=== PATIENT | male | born 1960 | race African-American/Black ===

== ENCOUNTER 2018-09-14 09:27 | Inpatient (IN) | payer MEDICAID ==
[~2018-09-14] VITALS: Ht 177.8 cm; Wt 107.0 kg
[~2018-09-14 09:27] MED LIST: ASPI-1158 PO; ATEN50TA PO; CITA10TA9 PO; DIPY25TA34 PO; FOLI-43 PO; ISOS10TA2 PO; LISI10TA5 PO; PHEN300C6 PO; SIMV40TA5 PO
[2018-09-14 10:33] LABS: BASOPHILS % 0.4 % (0.0-2.0); HEMATOCRIT. 48.5 % (42.0-52.0); HEMOGLOBIN. 17.5 g/dL (14.0-18.0); LYMPHOCYTES % 26.9 % (20.0-50.0); MEAN CORPUSCULAR VOLUME 86.3 fL (80.0-94.0); MEAN PLATELET VOLUME 8.4 fl (7.4-10.4); MONOCYTES % 9.5 % (2.0-8.0); NEUTROPHILS % 62.2 % (40.0-76.0); PLATELET 213 x1000/uL (130-400); RED BLOOD CELL COUNT 5.62 mill/uL (4.7-6.1); RED CELL DISTRIBUTION WIDTH 15.4 % (11.6-14.6)
[2018-09-14 10:34] LABS: INR 1.1; PROTHROMBIN TIME 10.7 sec (9.1-11.1)
[2018-09-14 10:35] LABS: CHLORIDE 103 mEq/L (98-107)
[2018-09-14] MEDS ORDERED: ASPIRIN 81MG TABLET PO ONE (11:30)
[2018-09-14] MEDS ORDERED: MAGNESIUM/ALUMINUM HYDROXIDE/SIMETHICONE 30ML UDC PO PRN (11:30)
[2018-09-14] MEDS ORDERED: ONDANSETRON HCL 4MG/2ML INJ IV PRN (11:30)
[2018-09-14] MEDS ORDERED: DIPHENHYDRAMINE 50MG/ML VIAL IV PRN (11:30)
[2018-09-14] MEDS ORDERED: ACETAMINOPHEN 325MG TABLET PO PRN (11:30)
[2018-09-14 12:13] LABS: PHOSPHORUS 3.3 mg/dL (2.5-4.9)
[2018-09-14 12:31] LABS: CLARITY URINE CLEAR (CLEAR); COLOR URINE YELLOW (YELLOW); KETONES URINE 1+ (NEGATIVE); LEUKOCYTE ESTERASE URINE NEGATIVE (NEGATIVE); NITRITE URINE NEGATIVE (NEGATIVE); OCCULT BLOOD URINE 1+ (NEGATIVE); PROTEIN URINE NEGATIVE (NEGATIVE); SPECIFIC GRAVITY URINE 1.021 (1.005-1.030); UROBILINOGEN URINE 0.2 E.U./dL (0.2-1.0)
[2018-09-14 13:14] LABS: HEPATITIS B SURFACE ANTIGEN NEGATIVE
[2018-09-14 13:43] LABS: HEPATITIS A AB IGM NEGATIVE (NEGATIVE)
[2018-09-14] MEDS ORDERED: ATENOLOL 25MG TABLET PO NR (17:30)
[2018-09-14 23:00] VITALS: BP 158/107
[2018-09-14 23:30] VITALS: BP 158/107
[2018-09-14] MEDS ORDERED: DEXTROSE 50% WATER 50ML SYRINGE IV PRN (23:45)
[2018-09-14] MEDS: CLONIDINE 0.1MG TABLET PO PRN (23:53)
[2018-09-14] MEDS: ATENOLOL 25MG TABLET PO SCH (23:54)
[2018-09-15] VITALS (7 sets, daily range): BP systolic 138–165; BP diastolic 87–112
[2018-09-15] MEDS: HYDROCODONE/ACETAMINOPHEN 5/325MG TABLET PO PRN (02:47)
[2018-09-15] MEDS: BLOOD SUGAR DIAGNOSTIC STRIP TEST SCH ×4 (05:13→22:45)
[2018-09-15 06:12] LABS: HIV SCREEN 4G Non Reactive (Non Reactive)
[2018-09-15 06:17] LABS: BASOPHILS % 0.5 % (0.0-2.0); EOSINOPHILS % 1.1 % (0.0-5.0); HEMATOCRIT. 45.6 % (42.0-52.0); HEMOGLOBIN. 15.9 g/dL (14.0-18.0); LYMPHOCYTES % 24.6 % (20.0-50.0); MEAN CORPUSCULAR HEMOGLOBIN 30.3 pg (28.0-32.0); MEAN PLATELET VOLUME 8.7 fl (7.4-10.4); MONOCYTES % 10.3 % (2.0-8.0); NEUTROPHILS % 63.5 % (40.0-76.0); PLATELET 175 x1000/uL (130-400); RED BLOOD CELL COUNT 5.24 mill/uL (4.7-6.1); RED CELL DISTRIBUTION WIDTH 15.1 % (11.6-14.6)
[2018-09-15 06:35] LABS: CHLORIDE 104 mEq/L (98-107)
[2018-09-15 06:49] LABS: HDL CHOLESTEROL 46 mg/dL (40-59)
[2018-09-15 06:51] LABS: LDL CHOLESTEROL 77 mg/dL (5-100)
[2018-09-15 07:05] LABS: FOLIC ACID (FOLATE) SERUM >20 ng/mL ng/mL (>5.38)
[2018-09-15 07:16] LABS: VITAMIN B12 SERUM 855 pg/mL (211-911)
[2018-09-15] MEDS: INSULIN LISPRO 100 UNITS/ML SUBCUT SCH ×4 (07:32→22:49)
[2018-09-15] MEDS: CLOPIDOGREL 75MG TABLET PO SCH (08:28)
[2018-09-15] MEDS: ATENOLOL 25MG TABLET PO SCH ×2 (08:28→22:44)
[2018-09-15] MEDS: ASPIRIN 81MG EC TABLET PO SCH (08:28)
[2018-09-15] MEDS: ENOXAPARIN 30MG/0.3ML SYR SUBCUT SCH ×2 (08:29→22:44)
[2018-09-15] MEDS: CLONIDINE 0.1MG TABLET PO PRN (10:43)
[2018-09-15 13:22] LABS: *AMPHETAMINES SCREEN URINE NEGATIVE (NEGATIVE); *BARBITURATES SCREEN URINE PRESUMTIVE POSITIVE (NEGATIVE); *BENZODIAZEPINES SCREEN URINE NEGATIVE (NEGATIVE); *COCAINE SCREEN URINE NEGATIVE (NEGATIVE); CANNABINOID URINE SCREEN PRESUMTIVE POSITIVE (NEGATIVE); PHENCYCLIDINE URINE SCREEN NEGATIVE (NEGATIVE)
[2018-09-15 13:23] LABS: METHADONE URINE SCREEN NEGATIVE (NEGATIVE); OPIATES URINE SCREEN NEGATIVE (NEGATIVE)
[2018-09-15] MEDS: ATORVASTATIN CALCIUM 10MG TABLET PO SCH (22:44)
[2018-09-15] MEDS: PHENYTOIN SODIUM EXTENDED 100MG CAPSULE PO SCH (22:45)
[2018-09-16] VITALS: BP 168/101
[2018-09-16] MEDS: IPRATROPIUM/ALBUTEROL 0.5-3(2.5)MG/3ML NEB INH PRN ×4 (01:30→21:13)
[2018-09-16 04:00] VITALS: BP 147/107
[2018-09-16] MEDS: BLOOD SUGAR DIAGNOSTIC STRIP TEST SCH ×4 (06:54→20:58)
[2018-09-16] MEDS: INSULIN LISPRO 100 UNITS/ML SUBCUT SCH ×4 (06:58→20:58)
[2018-09-16 08:00] VITALS: BP 167/101
[2018-09-16] MEDS: ATENOLOL 25MG TABLET PO SCH (08:22)
[2018-09-16] MEDS: CLOPIDOGREL 75MG TABLET PO SCH (08:22)
[2018-09-16] MEDS: ASPIRIN 81MG EC TABLET PO SCH (08:22)
[2018-09-16] MEDS: CLONIDINE 0.1MG TABLET PO PRN ×2 (08:22→20:59)
[2018-09-16] MEDS: ENOXAPARIN 30MG/0.3ML SYR SUBCUT SCH ×2 (08:59→20:52)
[2018-09-16] MEDS ORDERED: PHENYTOIN SODIUM 1,000 MG in SODIUM CHLORIDE 0.9% 100 ML IV SCH (11:00)
[2018-09-16 12:00] VITALS: BP 138/87
[2018-09-16] MEDS ORDERED: AMLODIPINE 2.5MG TABLET PO NR (13:00)
[2018-09-16] MEDS: LISINOPRIL 2.5MG TABLET PO SCH (13:19)
[2018-09-16 20:00] VITALS: BP 158/91
[2018-09-16] MEDS: ATORVASTATIN CALCIUM 10MG TABLET PO SCH (20:50)
[2018-09-16] MEDS: AMLODIPINE 2.5MG TABLET PO SCH (20:51)
[2018-09-16] MEDS: CARVEDILOL 6.25 MG TABLET PO SCH (20:52)
[2018-09-16] MEDS: PHENYTOIN SODIUM EXTENDED 100MG CAPSULE PO SCH (21:50)
[2018-09-17] VITALS: BP 138/103
[2018-09-17] MEDS ORDERED: HYDR-4009 PO (02:02)
[2018-09-17 04:00] VITALS: BP 164/115
[2018-09-17] MEDS: CLONIDINE 0.1MG TABLET PO PRN ×2 (05:59→12:43)
[2018-09-17] MEDS: BLOOD SUGAR DIAGNOSTIC STRIP TEST SCH ×4 (05:59→21:36)
[2018-09-17 07:41] LABS: BASOPHILS % 0.7 % (0.0-2.0); HEMATOCRIT. 52.8 % (42.0-52.0); HEMOGLOBIN. 18.1 g/dL (14.0-18.0); LYMPHOCYTES % 33.5 % (20.0-50.0); MEAN CORPUSCULAR HEMOGLOBIN 30.5 pg (28.0-32.0); MEAN CORPUSCULAR VOLUME 88.9 fL (80.0-94.0); MEAN PLATELET VOLUME 8.8 fl (7.4-10.4); MONOCYTES % 11.8 % (2.0-8.0); PLATELET 142 x1000/uL (130-400); RED BLOOD CELL COUNT 5.94 mill/uL (4.7-6.1); RED CELL DISTRIBUTION WIDTH 15.1 % (11.6-14.6)
[2018-09-17 08:00] VITALS: BP 141/104
[2018-09-17] MEDS: INSULIN LISPRO 100 UNITS/ML SUBCUT SCH ×4 (08:10→21:34)
[2018-09-17] MEDS: ASPIRIN 81MG EC TABLET PO SCH (09:15)
[2018-09-17] MEDS: CLOPIDOGREL 75MG TABLET PO SCH (09:15)
[2018-09-17] MEDS: AMLODIPINE 2.5MG TABLET PO SCH ×2 (09:17→21:35)
[2018-09-17] MEDS: CARVEDILOL 6.25 MG TABLET PO SCH (09:17)
[2018-09-17] MEDS: LISINOPRIL 2.5MG TABLET PO SCH (09:17)
[2018-09-17] MEDS: ENOXAPARIN 30MG/0.3ML SYR SUBCUT SCH ×2 (09:18→21:35)
[2018-09-17 09:41] LABS: CHLORIDE 103 mEq/L (98-107)
[2018-09-17] MEDS ORDERED: POTASSIUM CHLORIDE 20MEQ TABLET SR PO NR (11:15)
[2018-09-17 12:00] VITALS: BP 190/108
[2018-09-17] MEDS: HYDROCODONE/ACETAMINOPHEN 5/325MG TABLET PO PRN (12:44)
[2018-09-17] MEDS ORDERED: HYDRALAZINE 20MG/ML VIAL IV NR (14:45)
[2018-09-17] MEDS: IPRATROPIUM/ALBUTEROL 0.5-3(2.5)MG/3ML NEB INH PRN (15:35)
[2018-09-17 16:00] VITALS: BP 100/85
[2018-09-17] MEDS: FUROSEMIDE 40MG/4ML VIAL IVP SCH (16:15)
[2018-09-17 16:20] LABS: BG BASE EXCESS -0.1 mmol/L (-2.0-2.0); BG CARBOXYHEMOGLOBIN 0.4 % (0.5-1.5); BG FRACTION INSPIRED OXYGEN 36; BG HCO3 ACT 23.5 mmol/L (22.0-26.0); BG METHEMOGLOBIN 0.3 % (0.0-1.5); BG OXYHEMOGLOBIN 94.3 % (94.0-97.0); BG PCO2 35.9 mmHg (35.0-45.0); BG PH 7.434 (7.350-7.450); BG PO2 77.5 mmHg (75.0-100.0); BG SAMPLE SITE RIGHT RADIAL; BG TOTAL HEMOGLOBIN 17.9 g/dL (12.0-18.0); BG VENT MODE NASAL CANNULA
[2018-09-17 20:00] VITALS: BP 121/88
[2018-09-17] MEDS: PHENYTOIN SODIUM EXTENDED 100MG CAPSULE PO SCH (21:34)
[2018-09-17] MEDS: CARVEDILOL 12.5MG TABLET PO SCH (21:34)
[2018-09-17] MEDS: ATORVASTATIN CALCIUM 10MG TABLET PO SCH (21:34)
[2018-09-18] VITALS: BP 135/92
[2018-09-18 04:00] VITALS: BP 159/73
[2018-09-18 08:00] VITALS: BP 129/97
[2018-09-18] MEDS: INSULIN LISPRO 100 UNITS/ML SUBCUT SCH ×4 (08:10→20:44)
[2018-09-18] MEDS: BLOOD SUGAR DIAGNOSTIC STRIP TEST SCH ×4 (08:14→20:43)
[2018-09-18] MEDS: ASPIRIN 81MG EC TABLET PO SCH (08:45)
[2018-09-18] MEDS: LISINOPRIL 2.5MG TABLET PO SCH (08:46)
[2018-09-18] MEDS: AMLODIPINE 2.5MG TABLET PO SCH ×2 (08:46→20:43)
[2018-09-18] MEDS: FUROSEMIDE 40MG/4ML VIAL IVP SCH (08:47)
[2018-09-18] MEDS: CARVEDILOL 12.5MG TABLET PO SCH ×2 (08:48→20:43)
[2018-09-18] MEDS: CLOPIDOGREL 75MG TABLET PO SCH (08:49)
[2018-09-18] MEDS: ENOXAPARIN 30MG/0.3ML SYR SUBCUT SCH ×2 (08:53→20:43)
[2018-09-18 09:11] LABS: BASOPHILS % 1.1 % (0.0-2.0); EOSINOPHILS % 0.4 % (0.0-5.0); HEMATOCRIT. 53.5 % (42.0-52.0); HEMOGLOBIN. 18.5 g/dL (14.0-18.0); LYMPHOCYTES % 22.6 % (20.0-50.0); MEAN CORPUSCULAR HEMOGLOBIN 30.8 pg (28.0-32.0); MEAN CORPUSCULAR VOLUME 88.8 fL (80.0-94.0); MEAN PLATELET VOLUME 8.5 fl (7.4-10.4); MONOCYTES % 11.8 % (2.0-8.0); NEUTROPHILS % 64.1 % (40.0-76.0); PLATELET 222 x1000/uL (130-400); RED BLOOD CELL COUNT 6.02 mill/uL (4.7-6.1); RED CELL DISTRIBUTION WIDTH 15.1 % (11.6-14.6)
[2018-09-18 09:13] LABS: CHLORIDE 101 mEq/L (98-107)
[2018-09-18] MEDS: IPRATROPIUM/ALBUTEROL 0.5-3(2.5)MG/3ML NEB INH PRN ×2 (09:24→20:58)
[2018-09-18] MEDS ORDERED: PHENYTOIN SODIUM 700 MG in SODIUM CHLORIDE 0.9% 100 ML IV NR (11:00)
[2018-09-18 12:00] VITALS: BP 134/79
[2018-09-18 16:00] VITALS: BP 113/86
[2018-09-18 20:00] VITALS: BP 146/100
[2018-09-18] MEDS: ATORVASTATIN CALCIUM 10MG TABLET PO SCH (20:42)
[2018-09-18] MEDS: LISINOPRIL 5MG TABLET PO SCH (20:42)
[2018-09-18] MEDS: PHENYTOIN SODIUM EXTENDED 100MG CAPSULE PO SCH (20:42)
[2018-09-19] VITALS (8 sets, daily range): BP systolic 118–177; BP diastolic 52–105
[2018-09-19 07:18] LABS: CHLORIDE 102 mEq/L (98-107)
[2018-09-19 07:32] LABS: BASOPHILS % 0.3 % (0.0-2.0); EOSINOPHILS % 0.6 % (0.0-5.0); HEMATOCRIT. 46.5 % (42.0-52.0); HEMOGLOBIN. 16.6 g/dL (14.0-18.0); LYMPHOCYTES % 28.5 % (20.0-50.0); MEAN CORPUSCULAR HEMOGLOBIN 30.9 pg (28.0-32.0); MEAN CORPUSCULAR VOLUME 86.3 fL (80.0-94.0); MEAN PLATELET VOLUME 8.5 fl (7.4-10.4); MONOCYTES % 13.3 % (2.0-8.0); NEUTROPHILS % 57.3 % (40.0-76.0); PLATELET 206 x1000/uL (130-400); RED BLOOD CELL COUNT 5.39 mill/uL (4.7-6.1); RED CELL DISTRIBUTION WIDTH 14.9 % (11.6-14.6)
[2018-09-19] MEDS: BLOOD SUGAR DIAGNOSTIC STRIP TEST SCH ×3 (07:40→17:40)
[2018-09-19 08:00] LABS: TOTAL IRON BINDING CAPACITY 219 ug/dL (250-450)
[2018-09-19] MEDS: INSULIN LISPRO 100 UNITS/ML SUBCUT SCH ×3 (08:10→18:10)
[2018-09-19] MEDS: FUROSEMIDE 40MG/4ML VIAL IVP SCH (09:00)
[2018-09-19] MEDS: ASPIRIN 81MG EC TABLET PO SCH (09:00)
[2018-09-19] MEDS: CLOPIDOGREL 75MG TABLET PO SCH (09:01)
[2018-09-19] MEDS: AMLODIPINE 2.5MG TABLET PO SCH (09:01)
[2018-09-19] MEDS: CARVEDILOL 12.5MG TABLET PO SCH (09:01)
[2018-09-19] MEDS: LISINOPRIL 5MG TABLET PO SCH (09:01)
[2018-09-19] MEDS: ENOXAPARIN 30MG/0.3ML SYR SUBCUT SCH (09:02)
[2018-09-19] MEDS: IPRATROPIUM/ALBUTEROL 0.5-3(2.5)MG/3ML NEB INH PRN ×2 (09:51→16:29)
[2018-09-19] MEDS ORDERED: POTASSIUM CHLORIDE 20MEQ/PACKET PO NR (10:30)
[2018-09-19] MEDS ORDERED: AMLODIPINE 5MG TABLET PO SCH (21:00)
[2018-09-20] MEDS ORDERED: FUROSEMIDE 40MG TABLET PO SCH (09:00)
== END 2018-09-19 20:08 | disposition home or self-care (01) | DRG 194 ==
LOC: ER 09:27 → EDBEDREQ 10:45 → 7WST 11:22 → EDBEDREQ 11:26 → ENRESERV 20:33 → UNDODISIN 09-19 17:07
PROVIDERS: ADMIT Internal Medicine; ATTEND Internal Medicine
PROC: 4A00X4Z Measurement of Central Nervous Electrical Activity, External Approach (ICD-10-PCS; principal; 2018-09-17)
DX: I11.0 Hypertensive heart disease with heart failure (principal); I42.9 Cardiomyopathy, unspecified; I69.351 Hemiplegia and hemiparesis following cerebral infarction affecting right dominant side; R13.10 Dysphagia, unspecified; I50.23 Acute on chronic systolic (congestive) heart failure; E66.09 Other obesity due to excess calories; E78.00 Pure hypercholesterolemia, unspecified; I49.3 Ventricular premature depolarization; G40.909 Epilepsy, unspecified, not intractable, without status epilepticus; Z68.33 Body mass index [BMI] 33.0-33.9, adult; I69.320 Aphasia following cerebral infarction; Z68.35 Body mass index [BMI] 35.0-35.9, adult; Z79.02 Long term (current) use of antithrombotics/antiplatelets; Z79.82 Long term (current) use of aspirin; Z79.899 Other long term (current) drug therapy; Z91.81 History of falling; Z99.3 Dependence on wheelchair; Z87.81 Personal history of (healed) traumatic fracture; Z71.3 Dietary counseling and surveillance
CPT/HCPCS: 36415; 36600; 70544; 70553; 71045; 72141; 80048; 80061; 80185; 80305; 80320; 82375; 82607; 82728; 82746; 82805; 82962; 83036; 83540; 83550; 83735; 83880; 84100; 84443; 84484; 85379; 86705; 86709; 86803; 87340; 87389; 92610; 93005; 93306; 93880; 93970; 94640; 96374; 96375; 97162; 97166; 99285; C1893; J0360; J1165; J1650; J1815; J1940; J7050; J7620; G0480

== ENCOUNTER 2018-10-04 23:24 | Inpatient (IN) | payer MEDICAID ==
[~2018-10-04] VITALS: Ht 182.9 cm; Wt 102.5 kg
[2018-10-04] MEDS ORDERED: SODIUM CHLORIDE 0.9% 1,000 ML IV ONE (23:58)
[2018-10-04] MEDS ORDERED: ONDANSETRON HCL 4MG/2ML INJ IV STA (23:58)
[2018-10-04] MEDS ORDERED: FAMOTIDINE 20MG/2ML VIAL IV STA (23:58)
[2018-10-04] MEDS ORDERED: MORPHINE SULFATE 4 MG/ML CPJ (NOT FOR IM USE) IV STA (23:58)
[2018-10-05 00:38] LABS: BASOPHILS % 1.2 % (0.0-2.0); EOSINOPHILS % 1.2 % (0.0-5.0); HEMATOCRIT. 48.5 % (42.0-52.0); HEMOGLOBIN. 17.2 g/dL (14.0-18.0); LYMPHOCYTES % 32.4 % (20.0-50.0); MEAN CORPUSCULAR HEMOGLOBIN 30.7 pg (28.0-32.0); MEAN CORPUSCULAR VOLUME 86.7 fL (80.0-94.0); MEAN PLATELET VOLUME 8.5 fl (7.4-10.4); MONOCYTES % 9.4 % (2.0-8.0); NEUTROPHILS % 55.8 % (40.0-76.0); PLATELET 186 x1000/uL (130-400); RED CELL DISTRIBUTION WIDTH 14.9 % (11.6-14.6)
[2018-10-05 00:43] LABS: CHLORIDE 105 mEq/L (98-107)
[2018-10-05 00:46] LABS: PROTHROMBIN TIME 10.5 sec (9.6-11.0)
[2018-10-05 00:48] LABS: ETHANOL BLOOD < 10 mg/dL
[2018-10-05 01:11] LABS: CLARITY URINE TURBID (CLEAR); COLOR URINE DARK YELLOW (YELLOW); KETONES URINE 1+ (NEGATIVE); LEUKOCYTE ESTERASE URINE NEGATIVE (NEGATIVE); NITRITE URINE NEGATIVE (NEGATIVE); OCCULT BLOOD URINE 1+ (NEGATIVE); PROTEIN URINE 2+ (NEGATIVE); SPECIFIC GRAVITY URINE 1.029 (1.005-1.030)
[2018-10-05] MEDS ORDERED: IOHEXOL-300 100 ML BOTTLE ONE (02:15)
[2018-10-05] MEDS ORDERED: ENOXAPARIN 120MG/0.8ML SYR SUBCUT ONE (02:45)
[2018-10-05 04:00] VITALS: BP 123/96
[2018-10-05] MEDS ORDERED: ONDANSETRON HCL 4MG/2ML INJ IV PRN (07:00)
[2018-10-05 08:07] VITALS: BP 150/94
[2018-10-05] MEDS: DEXT 5%/0.45% NACL 1000ML 1,000 ML IV SCH ×2 (08:33→17:47)
[2018-10-05] MEDS: PANTOPRAZOLE SODIUM 40 MG/VIAL IV SCH (08:38)
[2018-10-05] MEDS: ENOXAPARIN 100MG/ML SYR SUBCUT SCH ×2 (10:11→21:25)
[2018-10-05 12:06] VITALS: BP 152/97
[2018-10-05] MEDS ORDERED: IOHEXOL-350 100 ML BOTTLE ONE (14:28)
[2018-10-05 16:14] VITALS: BP 120/62
[2018-10-05 20:34] VITALS: BP 112/87
[2018-10-05] MEDS: MORPHINE SULFATE 4 MG/ML CPJ (NOT FOR IM USE) IV PRN (22:23)
[2018-10-06] VITALS (48 sets, daily range): BP systolic 74–204; BP diastolic 50–131
[2018-10-06] MEDS: MORPHINE SULFATE 4 MG/ML CPJ (NOT FOR IM USE) IV PRN (05:38)
[2018-10-06] MEDS: PANTOPRAZOLE SODIUM 40 MG/VIAL IV SCH (08:21)
[2018-10-06] MEDS: ATENOLOL 50 MG TABLET PO SCH (08:53)
[2018-10-06] MEDS: LISINOPRIL 10MG TABLET PO SCH (08:53)
[2018-10-06] MEDS: FOLIC ACID 1MG TABLET PO SCH (08:53)
[2018-10-06] MEDS: ISOSORBIDE DINITRATE 10MG TABLET PO SCH ×3 (08:53→16:25)
[2018-10-06] MEDS ORDERED: DIPYRIDAMOLE 25 MG PO SCH (09:00)
[2018-10-06] MEDS ORDERED: MEDICATION NOT ON FORMULARY EA (Atenolol 50 MG) PO SCH (09:00)
[2018-10-06] MEDS: ENOXAPARIN 100MG/ML SYR SUBCUT SCH ×2 (09:00→21:08)
[2018-10-06] MEDS ORDERED: MEDICATION NOT ON FORMULARY EA (Folic Acid 1 MG) PO SCH (09:00)
[2018-10-06] MEDS ORDERED: MEDICATION NOT ON FORMULARY EA (Isosorbide Dinitrate 10 MG) PO SCH (09:00)
[2018-10-06] MEDS ORDERED: MEDICATION NOT ON FORMULARY EA (Lisinopril 10 MG) PO SCH (09:00)
[2018-10-06] MEDS: IPRATROPIUM/ALBUTEROL 0.5-3(2.5)MG/3ML NEB HHN PRN (11:09)
[2018-10-06] MEDS ORDERED: VECURONIUM BROMIDE 10 MG/VIAL IV ONE (12:50)
[2018-10-06] MEDS ORDERED: ETOMIDATE 2MG/ML 10ML VIAL IV ONE (12:50)
[2018-10-06] MEDS: DEXT 5%/0.45% NACL 1000ML 1,000 ML IV SCH ×3 (13:00→22:53)
[2018-10-06] MEDS: PROPOFOL 10MG/ML 100ML 100 ML IV PRN ×3 (13:45→21:56)
[2018-10-06 14:01] LABS: BG BASE EXCESS 1.1 mmol/L (-2.0-2.0); BG CARBOXYHEMOGLOBIN 0.8 % (0.5-1.5); BG DEOXYHEMOGLOBIN 0.6 % (0.0-5.0); BG HCO3 ACT 23.6 mmol/L (22.0-26.0); BG METHEMOGLOBIN 0.4 % (0.0-1.5); BG OXYGEN SATURATION 99.4 % (92.0-98.5); BG OXYHEMOGLOBIN 98.2 % (94.0-97.0); BG PH 7.485 (7.350-7.450); BG PO2 199.7 mmHg (75.0-100.0); BG SAMPLE SITE RIGHT RADIAL; BG TIDAL VOLUME(mL) 550 mL; BG VENT MODE VENT - A/C; BG VENT RATE 16 set
[2018-10-06] MEDS ORDERED: IOHEXOL-350 100 ML BOTTLE ONE (15:56)
[2018-10-06] MEDS: IPRATROPIUM/ALBUTEROL 0.5-3(2.5)MG/3ML NEB HHN SCH ×2 (16:10→20:14)
[2018-10-06] MEDS: PHENYLEPHRINE 40 MG in DEXT 5% WATER 246 ML IV PRN ×2 (18:37→19:37)
[2018-10-06] MEDS ORDERED: MEDICATION NOT ON FORMULARY EA (Citalopram Hydrobromide (Citalopram Hbr) 10 MG) PO SCH (21:00)
[2018-10-06] MEDS: PHENYTOIN SODIUM EXTENDED 100MG CAPSULE PO SCH (21:00)
[2018-10-06] MEDS ORDERED: PHENYTOIN SODIUM 300 MG PO SCH (21:00)
[2018-10-06] MEDS: ATORVASTATIN CALCIUM 20MG TABLET PO SCH (21:00)
[2018-10-06] MEDS ORDERED: MEDICATION NOT ON FORMULARY EA (Simvastatin 40 MG) PO SCH (21:00)
[2018-10-06] MEDS: CITALOPRAM HYDROBROMIDE 10MG TABLET PO SCH (21:00)
[2018-10-06] MEDS: ACETAMINOPHEN 650MG/20.3ML UDC PO PRN (23:59)
[2018-10-07] VITALS (100 sets, daily range): BP systolic 74–150; BP diastolic 45–105
[2018-10-07] MEDS: IPRATROPIUM/ALBUTEROL 0.5-3(2.5)MG/3ML NEB HHN SCH ×6 (00:07→20:03)
[2018-10-07] MEDS: PROPOFOL 10MG/ML 100ML 100 ML IV PRN ×6 (01:37→22:55)
[2018-10-07] MEDS: MORPHINE SULFATE 4 MG/ML CPJ (NOT FOR IM USE) IV PRN (01:59)
[2018-10-07] MEDS: PHENYLEPHRINE 40 MG in DEXT 5% WATER 246 ML IV PRN ×5 (05:24→22:51)
[2018-10-07 05:55] LABS: BASOPHILS % 0.2 % (0.0-2.0); HEMATOCRIT. 48.4 % (42.0-52.0); HEMOGLOBIN. 17.1 g/dL (14.0-18.0); LYMPHOCYTES % 8.5 % (20.0-50.0); MEAN CORPUSCULAR HEMOGLOBIN 30.6 pg (28.0-32.0); MEAN CORPUSCULAR VOLUME 86.5 fL (80.0-94.0); MEAN PLATELET VOLUME 8.8 fl (7.4-10.4); MONOCYTES % 6.6 % (2.0-8.0); NEUTROPHILS % 84.7 % (40.0-76.0); PLATELET 169 x1000/uL (130-400); RED BLOOD CELL COUNT 5.59 mill/uL (4.7-6.1); RED CELL DISTRIBUTION WIDTH 15.2 % (11.6-14.6)
[2018-10-07 06:37] LABS: CHLORIDE 105 mEq/L (98-107)
[2018-10-07] MEDS ORDERED: NOREPINEPHRINE 16 MG in DEXT 5% WATER 234 ML IV PRN (08:30)
[2018-10-07 08:43] LABS: BG CARBOXYHEMOGLOBIN 0.1 % (0.5-1.5); BG DEOXYHEMOGLOBIN 4.1 % (0.0-5.0); BG FRACTION INSPIRED OXYGEN 40; BG HCO3 ACT 21.5 mmol/L (22.0-26.0); BG METHEMOGLOBIN 0.4 % (0.0-1.5); BG OXYGEN SATURATION 95.9 % (92.0-98.5); BG OXYHEMOGLOBIN 95.4 % (94.0-97.0); BG PCO2 30.8 mmHg (35.0-45.0); BG PH 7.462 (7.350-7.450); BG SAMPLE SITE RIGHT RADIAL; BG TIDAL VOLUME(mL) 550 mL; BG TOTAL HEMOGLOBIN 16.5 g/dL (12.0-18.0); BG VENT MODE VENT - A/C; BG VENT RATE 14 set
[2018-10-07] MEDS: PANTOPRAZOLE SODIUM 40 MG/VIAL IV SCH (08:52)
[2018-10-07] MEDS: ISOSORBIDE DINITRATE 10MG TABLET PO SCH (09:00)
[2018-10-07] MEDS: LISINOPRIL 10MG TABLET PO SCH (09:00)
[2018-10-07] MEDS ORDERED: KCL 20MEQ/100ML PREMIX 100 ML IV SCH (09:00)
[2018-10-07] MEDS: ATENOLOL 50 MG TABLET PO SCH (09:00)
[2018-10-07] MEDS: ENOXAPARIN 100MG/ML SYR SUBCUT SCH ×2 (09:08→21:05)
[2018-10-07] MEDS: DEXT 5%/0.45% NACL 1000ML 1,000 ML IV SCH ×2 (09:08→20:48)
[2018-10-07 09:10] LABS: ANTI-NUCLEAR ANTIBODIES DIRECT Negative (Negative)
[2018-10-07] MEDS ORDERED: CEFEPIME 1,000 MG in DEXTROSE 5% WATER 50 ML IV SCH (09:30)
[2018-10-07] MEDS ORDERED: ASPIRIN 81MG TABLET PO SCH (11:00)
[2018-10-07] MEDS: FOLIC ACID 1MG TABLET PO SCH (11:25)
[2018-10-07] MEDS ORDERED: POTASSIUM CHLORIDE 20MEQ/PACKET PO NR (11:30)
[2018-10-07] MEDS: METRONIDAZOLE 500 MG PREMIX 100 ML IV SCH ×2 (11:42→17:51)
[2018-10-07] MEDS ORDERED: PIPERACILLIN/TAZ 3.375G PREMIX 50 ML IV SCH (12:00)
[2018-10-07] MEDS ORDERED: VANCOMYCIN 2,000 MG in DEXT 5% WATER 500 ML IV NR (14:00)
[2018-10-07] MEDS: PIPERACILLIN/TAZ 3.375G PREMIX 50 ML IV SCH ×2 (14:49→21:04)
[2018-10-07 15:06] LABS: ANTI-THROMBIN ACTIVITY 106 % (75-135); DRVVT LA 39.8 sec (0.0-47.0); LUPUS ANTICOAG INTERPRETATION Comment: (.); PROTEIN C FUNCTIONAL 107 % (73-180)
[2018-10-07] MEDS: ACETAMINOPHEN 650MG/20.3ML UDC PO PRN (17:08)
[2018-10-07] MEDS: CITALOPRAM HYDROBROMIDE 10MG TABLET PO SCH (21:05)
[2018-10-07] MEDS: ATORVASTATIN CALCIUM 20MG TABLET PO SCH (21:05)
[2018-10-07] MEDS: PHENYTOIN SODIUM EXTENDED 100MG CAPSULE PO SCH (21:05)
[2018-10-08] VITALS (95 sets, daily range): BP systolic 84–161; BP diastolic 39–111
[2018-10-08] MEDS: IPRATROPIUM/ALBUTEROL 0.5-3(2.5)MG/3ML NEB HHN SCH ×3 (00:01→09:29)
[2018-10-08] MEDS: METRONIDAZOLE 500 MG PREMIX 100 ML IV SCH ×3 (01:04→18:02)
[2018-10-08] MEDS: PIPERACILLIN/TAZ 3.375G PREMIX 50 ML IV SCH ×4 (02:11→21:29)
[2018-10-08] MEDS: VANCOMYCIN 1500MG in DEXTROSE 5% WATER 250ML IV SCH ×2 (02:42→13:50)
[2018-10-08] MEDS: PHENYLEPHRINE 40 MG in DEXT 5% WATER 246 ML IV PRN ×2 (04:24→14:03)
[2018-10-08 05:44] LABS: CHLORIDE 106 mEq/L (98-107)
[2018-10-08 05:57] LABS: BASOPHILS % 0.2 % (0.0-2.0); HEMATOCRIT. 45.1 % (42.0-52.0); LYMPHOCYTES % 10.4 % (20.0-50.0); MEAN CORPUSCULAR VOLUME 87.2 fL (80.0-94.0); MONOCYTES % 7.8 % (2.0-8.0); NEUTROPHILS % 81.6 % (40.0-76.0); PLATELET 188 x1000/uL (130-400); RED BLOOD CELL COUNT 5.17 mill/uL (4.7-6.1); RED CELL DISTRIBUTION WIDTH 14.9 % (11.6-14.6)
[2018-10-08] MEDS: PROPOFOL 10MG/ML 100ML 100 ML IV PRN ×3 (06:08→22:59)
[2018-10-08 08:17] LABS: BG FRACTION INSPIRED OXYGEN 40; BG SAMPLE SITE RIGHT BRACHIAL; BG TIDAL VOLUME(mL) 550 mL; BG VENT MODE VENT - A/C; BG VENT RATE 12 set
[2018-10-08 08:18] LABS: BG BASE EXCESS -4.5 mmol/L (-2.0-2.0); BG CARBOXYHEMOGLOBIN 0.3 % (0.5-1.5); BG DEOXYHEMOGLOBIN 7.6 % (0.0-5.0); BG HCO3 ACT 18.4 mmol/L (22.0-26.0); BG METHEMOGLOBIN 0.4 % (0.0-1.5); BG OXYGEN SATURATION 92.3 % (92.0-98.5); BG OXYHEMOGLOBIN 91.7 % (94.0-97.0); BG PCO2 29.2 mmHg (35.0-45.0); BG PH 7.417 (7.350-7.450); BG PO2 65.1 mmHg (75.0-100.0); BG TOTAL HEMOGLOBIN 16.6 g/dL (12.0-18.0)
[2018-10-08] MEDS: PANTOPRAZOLE SODIUM 40 MG/VIAL IV SCH (08:39)
[2018-10-08] MEDS: DEXT 5%/0.45% NACL 1000ML 1,000 ML IV SCH ×3 (08:40→21:42)
[2018-10-08] MEDS: FOLIC ACID 1MG TABLET PO SCH (08:40)
[2018-10-08] MEDS: ENOXAPARIN 100MG/ML SYR SUBCUT SCH ×2 (09:29→21:30)
[2018-10-08] MEDS: IPRATROPIUM BROMIDE (0.02%) 0.5MG/2.5ML NEB HHN SCH ×3 (11:47→21:06)
[2018-10-08] MEDS: PHENYTOIN SODIUM EXTENDED 100MG CAPSULE PO SCH (21:30)
[2018-10-08] MEDS: ATORVASTATIN CALCIUM 20MG TABLET PO SCH (21:30)
[2018-10-08] MEDS: CITALOPRAM HYDROBROMIDE 10MG TABLET PO SCH (21:30)
[2018-10-09] VITALS (109 sets, daily range): BP systolic 73–211; BP diastolic 35–128
[2018-10-09] MEDS: VANCOMYCIN 1500MG in DEXTROSE 5% WATER 250ML IV SCH ×2 (01:16→13:06)
[2018-10-09] MEDS: PIPERACILLIN/TAZ 3.375G PREMIX 50 ML IV SCH ×4 (03:29→21:17)
[2018-10-09] MEDS: PROPOFOL 10MG/ML 100ML 100 ML IV PRN ×2 (04:52→15:09)
[2018-10-09] MEDS: IPRATROPIUM BROMIDE (0.02%) 0.5MG/2.5ML NEB HHN SCH ×5 (04:53→20:44)
[2018-10-09 05:30] LABS: BASOPHILS % 0.2 % (0.0-2.0); EOSINOPHILS % 0.3 % (0.0-5.0); HEMATOCRIT. 41.2 % (42.0-52.0); HEMOGLOBIN. 14.5 g/dL (14.0-18.0); LYMPHOCYTES % 12.4 % (20.0-50.0); MEAN CORPUSCULAR HEMOGLOBIN 30.9 pg (28.0-32.0); NEUTROPHILS % 80.1 % (40.0-76.0); PLATELET 143 x1000/uL (130-400); RED BLOOD CELL COUNT 4.68 mill/uL (4.7-6.1); RED CELL DISTRIBUTION WIDTH 15.3 % (11.6-14.6)
[2018-10-09 06:25] LABS: CHLORIDE 110 mEq/L (98-107)
[2018-10-09 07:52] LABS: BG CARBOXYHEMOGLOBIN 0.4 % (0.5-1.5); BG DEOXYHEMOGLOBIN 3.4 % (0.0-5.0); BG FRACTION INSPIRED OXYGEN 40; BG HCO3 ACT 20.6 mmol/L (22.0-26.0); BG METHEMOGLOBIN 0.4 % (0.0-1.5); BG OXYGEN SATURATION 96.6 % (92.0-98.5); BG OXYHEMOGLOBIN 95.8 % (94.0-97.0); BG PCO2 32.8 mmHg (35.0-45.0); BG PH 7.415 (7.350-7.450); BG PO2 87.4 mmHg (75.0-100.0); BG SAMPLE SITE RIGHT RADIAL; BG TIDAL VOLUME(mL) 550 mL; BG TOTAL HEMOGLOBIN 14.7 g/dL (12.0-18.0); BG VENT MODE VENT - A/C; BG VENT RATE 12 set
[2018-10-09] MEDS: PANTOPRAZOLE SODIUM 40 MG/VIAL IV SCH (08:41)
[2018-10-09] MEDS: FOLIC ACID 1MG TABLET PO SCH (08:41)
[2018-10-09] MEDS: DEXT 5%/0.45% NACL 1000ML 1,000 ML IV SCH ×2 (08:49→18:04)
[2018-10-09] MEDS: ENOXAPARIN 100MG/ML SYR SUBCUT SCH ×2 (10:39→21:18)
[2018-10-09 11:39] LABS: BG BASE EXCESS -0.8 mmol/L (-2.0-2.0); BG CARBOXYHEMOGLOBIN 0.3 % (0.5-1.5); BG DEOXYHEMOGLOBIN 2.8 % (0.0-5.0); BG FRACTION INSPIRED OXYGEN 40; BG HCO3 ACT 23.5 mmol/L (22.0-26.0); BG METHEMOGLOBIN 0.3 % (0.0-1.5); BG OXYGEN SATURATION 97.2 % (92.0-98.5); BG OXYHEMOGLOBIN 96.6 % (94.0-97.0); BG PCO2 37.8 mmHg (35.0-45.0); BG PH 7.411 (7.350-7.450); BG PO2 92.9 mmHg (75.0-100.0); BG PRESSURE SUPPORT 8; BG SAMPLE SITE RIGHT BRACHIAL; BG TOTAL HEMOGLOBIN 14.3 g/dL (12.0-18.0); BG VENT MODE VENT - CPAP
[2018-10-09 11:50] LABS: CHLORIDE 110 mEq/L (98-107)
[2018-10-09] MEDS ORDERED: POTASSIUM CHLORIDE 20MEQ/PACKET PO NR (12:15)
[2018-10-09] MEDS ORDERED: KCL 20MEQ/100ML PREMIX 100 ML IV NR (13:00)
[2018-10-09 13:10] LABS: ANTI-MYELOPEROXIDASE AB < 9.0 U/mL (0.0-9.0); ANTI-PROTEINASE 3 ABS < 3.5 U/mL (0.0-3.5)
[2018-10-09] MEDS: ATENOLOL 50 MG TABLET PO SCH (13:53)
[2018-10-09] MEDS: LISINOPRIL 10MG TABLET PO SCH (13:54)
[2018-10-09] MEDS: ACETYLCYSTEINE 100MG/ML 10% VIAL 4ML INH SCH (14:00)
[2018-10-09] MEDS: METHYLPREDNISOLONE SOD SUCC 125 MG/2 ML VIAL IV SCH ×2 (14:58→21:16)
[2018-10-09] MEDS: LOSARTAN POTASSIUM 25 MG TABLET PO SCH (14:58)
[2018-10-09 15:06] LABS: ATYPICAL P-ANCA <1:20 titer (Neg:<1:20); CYTOPLASMIC C-ANCA <1:20 titer (Neg:<1:20); PERINUCLEAR P-ANCA <1:20 titer (Neg:<1:20)
[2018-10-09 15:37] LABS: BG BASE EXCESS -2.3 mmol/L (-2.0-2.0); BG CARBOXYHEMOGLOBIN 0.3 % (0.5-1.5); BG DEOXYHEMOGLOBIN 9.9 % (0.0-5.0); BG FRACTION INSPIRED OXYGEN 40; BG HCO3 ACT 22.1 mmol/L (22.0-26.0); BG METHEMOGLOBIN 0.5 % (0.0-1.5); BG OXYHEMOGLOBIN 89.3 % (94.0-97.0); BG PCO2 37.1 mmHg (35.0-45.0); BG PH 7.392 (7.350-7.450); BG PO2 59.7 mmHg (75.0-100.0); BG SAMPLE SITE RIGHT RADIAL; BG TIDAL VOLUME(mL) 550 mL; BG TOTAL HEMOGLOBIN 15.6 g/dL (12.0-18.0); BG VENT MODE VENT - A/C; BG VENT RATE 12 set
[2018-10-09] MEDS ORDERED: VECURONIUM BROMIDE 10 MG/VIAL IV ONE (16:00)
[2018-10-09] MEDS ORDERED: ETOMIDATE 2MG/ML 10ML VIAL IV ONE (16:00)
[2018-10-09] MEDS: PHENYTOIN SODIUM EXTENDED 100MG CAPSULE PO SCH (21:17)
[2018-10-09] MEDS: CITALOPRAM HYDROBROMIDE 10MG TABLET PO SCH (21:17)
[2018-10-09] MEDS: ATORVASTATIN CALCIUM 20MG TABLET PO SCH (21:17)
[2018-10-10] VITALS (92 sets, daily range): BP systolic 84–145; BP diastolic 42–93
[2018-10-10] MEDS: IPRATROPIUM BROMIDE (0.02%) 0.5MG/2.5ML NEB HHN SCH ×6 (00:35→21:09)
[2018-10-10] MEDS: ACETYLCYSTEINE 100MG/ML 10% VIAL 4ML INH SCH ×2 (00:36→08:00)
[2018-10-10] MEDS: VANCOMYCIN 1500MG in DEXTROSE 5% WATER 250ML IV SCH ×2 (02:05→13:10)
[2018-10-10] MEDS: METHYLPREDNISOLONE SOD SUCC 125 MG/2 ML VIAL IV SCH ×3 (02:11→17:15)
[2018-10-10] MEDS: PROPOFOL 10MG/ML 100ML 100 ML IV PRN ×2 (02:11→10:07)
[2018-10-10] MEDS: PIPERACILLIN/TAZ 3.375G PREMIX 50 ML IV SCH ×4 (02:11→21:38)
[2018-10-10] MEDS: MORPHINE SULFATE 4 MG/ML CPJ (NOT FOR IM USE) IV PRN (03:10)
[2018-10-10] MEDS: DEXT 5%/0.45% NACL 1000ML 1,000 ML IV SCH ×2 (03:18→17:15)
[2018-10-10] MEDS: IPRATROPIUM/ALBUTEROL 0.5-3(2.5)MG/3ML NEB HHN PRN (05:03)
[2018-10-10 05:36] LABS: HEMATOCRIT. 39.6 % (42.0-52.0); HEMOGLOBIN. 13.8 g/dL (14.0-18.0); MEAN CORPUSCULAR HEMOGLOBIN 30.7 pg (28.0-32.0); MEAN CORPUSCULAR VOLUME 88.1 fL (80.0-94.0); MEAN PLATELET VOLUME 9.1 fl (7.4-10.4); PLATELET 154 x1000/uL (130-400); RED BLOOD CELL COUNT 4.49 mill/uL (4.7-6.1); RED CELL DISTRIBUTION WIDTH 15.5 % (11.6-14.6)
[2018-10-10] MEDS: PANTOPRAZOLE SODIUM 40 MG/VIAL IV SCH (08:36)
[2018-10-10] MEDS: ATENOLOL 50 MG TABLET PO SCH (08:37)
[2018-10-10] MEDS: FOLIC ACID 1MG TABLET PO SCH (08:37)
[2018-10-10] MEDS: LISINOPRIL 10MG TABLET PO SCH (08:38)
[2018-10-10] MEDS: LOSARTAN POTASSIUM 25 MG TABLET PO SCH (08:38)
[2018-10-10] MEDS: ENOXAPARIN 100MG/ML SYR SUBCUT SCH ×2 (10:09→21:38)
[2018-10-10 10:14] LABS: NUCLEATED RED BLOOD CELLS 1 /100 WBC; PLATELET ESTIMATE NORMAL
[2018-10-10] MEDS: PHENYLEPHRINE 40 MG in DEXT 5% WATER 246 ML IV PRN (12:18)
[2018-10-10] MEDS: MIDAZOLAM HCL 100 MG in DEXT 5% WATER 80 ML IV PRN (12:19)
[2018-10-10] MEDS: FENTANYL CITRATE/PF 500 MCG in SODIUM CHLORIDE 0.9% 40 ML IV PRN (12:20)
[2018-10-10 13:07] LABS: ANTI-CARDIOLIPIN AB IGG < 9 GPL U/mL (0-14); ANTI-CARDIOLIPIN AB IGM < 9 MPL U/mL (0-12)
[2018-10-10] MEDS: ATORVASTATIN CALCIUM 20MG TABLET PO SCH (21:38)
[2018-10-10] MEDS: PHENYTOIN SODIUM EXTENDED 100MG CAPSULE PO SCH (21:38)
[2018-10-11] VITALS (98 sets, daily range): BP systolic 94–152; BP diastolic 65–113
[2018-10-11] MEDS ORDERED: ACETYLCYSTEINE 200MG/ML 20% VIAL 4ML INH SCH
[2018-10-11] MEDS: ACETYLCYSTEINE 100MG/ML 10% VIAL 4ML INH SCH (00:37)
[2018-10-11] MEDS: IPRATROPIUM BROMIDE (0.02%) 0.5MG/2.5ML NEB HHN SCH ×6 (00:37→21:06)
[2018-10-11] MEDS: VANCOMYCIN 1500MG in DEXTROSE 5% WATER 250ML IV SCH (02:25)
[2018-10-11] MEDS: METHYLPREDNISOLONE SOD SUCC 125 MG/2 ML VIAL IV SCH ×3 (02:25→18:36)
[2018-10-11] MEDS: DEXT 5%/0.45% NACL 1000ML 1,000 ML IV SCH (03:34)
[2018-10-11] MEDS: PIPERACILLIN/TAZ 3.375G PREMIX 50 ML IV SCH ×4 (03:35→21:55)
[2018-10-11 05:38] LABS: HEMATOCRIT. 38.3 % (42.0-52.0); HEMOGLOBIN. 13.1 g/dL (14.0-18.0); MEAN CORPUSCULAR HEMOGLOBIN 29.9 pg (28.0-32.0); MEAN CORPUSCULAR VOLUME 87.3 fL (80.0-94.0); MEAN PLATELET VOLUME 9.1 fl (7.4-10.4); PLATELET 181 x1000/uL (130-400); RED BLOOD CELL COUNT 4.39 mill/uL (4.7-6.1); RED CELL DISTRIBUTION WIDTH 15.6 % (11.6-14.6)
[2018-10-11 07:53] LABS: BG BASE EXCESS -0.4 mmol/L (-2.0-2.0); BG CARBOXYHEMOGLOBIN 0.3 % (0.5-1.5); BG DEOXYHEMOGLOBIN 5.1 % (0.0-5.0); BG HCO3 ACT 24.6 mmol/L (22.0-26.0); BG METHEMOGLOBIN 0.3 % (0.0-1.5); BG OXYGEN SATURATION 94.9 % (92.0-98.5); BG OXYHEMOGLOBIN 94.3 % (94.0-97.0); BG PCO2 41.7 mmHg (35.0-45.0); BG PH 7.389 (7.350-7.450); BG PO2 75.9 mmHg (75.0-100.0); BG SAMPLE SITE RIGHT RADIAL; BG TIDAL VOLUME(mL) 550 mL; BG TOTAL HEMOGLOBIN 13.6 g/dL (12.0-18.0); BG VENT MODE VENT - A/C; BG VENT RATE 12 set
[2018-10-11 08:38] LABS: PLATELET ESTIMATE NORMAL
[2018-10-11] MEDS: PANTOPRAZOLE SODIUM 40 MG/VIAL IV SCH (09:44)
[2018-10-11] MEDS: FOLIC ACID 1MG TABLET PO SCH (09:44)
[2018-10-11] MEDS: ENOXAPARIN 100MG/ML SYR SUBCUT SCH ×2 (10:22→21:57)
[2018-10-11] MEDS ORDERED: LIDOCAINE HCL/PF 1% 2ML VIAL ONE (11:03)
[2018-10-11] MEDS: FENTANYL CITRATE/PF 500 MCG in SODIUM CHLORIDE 0.9% 40 ML IV PRN (11:10)
[2018-10-11] MEDS: MIDAZOLAM HCL 100 MG in DEXT 5% WATER 80 ML IV PRN ×2 (11:10→23:22)
[2018-10-11] MEDS ORDERED: SODIUM CHLORIDE 3% FOR INH 15ML VIAL NEB INH SCH (12:00)
[2018-10-11 15:13] LABS: CREATINE KINASE 87 IU/L (39-308)
[2018-10-11] MEDS: SODIUM CHLORIDE 3% FOR INH 4ML UD NEB INH SCH (21:06)
[2018-10-11] MEDS: PHENYTOIN SODIUM EXTENDED 100MG CAPSULE PO SCH (21:55)
[2018-10-11] MEDS: ATORVASTATIN CALCIUM 20MG TABLET PO SCH (21:55)
[2018-10-12] VITALS (93 sets, daily range): BP systolic 62–140; BP diastolic 33–119
[2018-10-12] MEDS: PIPERACILLIN/TAZ 3.375G PREMIX 50 ML IV SCH ×4 (02:52→21:31)
[2018-10-12] MEDS: METHYLPREDNISOLONE SOD SUCC 125 MG/2 ML VIAL IV SCH ×2 (02:52→09:01)
[2018-10-12] MEDS: SODIUM CHLORIDE 3% FOR INH 4ML UD NEB INH SCH ×3 (04:26→12:38)
[2018-10-12] MEDS: IPRATROPIUM/ALBUTEROL 0.5-3(2.5)MG/3ML NEB HHN PRN ×3 (04:27→20:24)
[2018-10-12] MEDS: IPRATROPIUM BROMIDE (0.02%) 0.5MG/2.5ML NEB HHN SCH ×5 (04:28→20:24)
[2018-10-12 05:44] LABS: BASOPHILS % 0.1 % (0.0-2.0); HEMATOCRIT. 37.6 % (42.0-52.0); HEMOGLOBIN. 13.1 g/dL (14.0-18.0); LYMPHOCYTES % 7.6 % (20.0-50.0); MEAN CORPUSCULAR HEMOGLOBIN 30.8 pg (28.0-32.0); MEAN PLATELET VOLUME 9.1 fl (7.4-10.4); MONOCYTES % 11.4 % (2.0-8.0); NEUTROPHILS % 80.9 % (40.0-76.0); PLATELET 198 x1000/uL (130-400); RED BLOOD CELL COUNT 4.27 mill/uL (4.7-6.1); RED CELL DISTRIBUTION WIDTH 15.6 % (11.6-14.6)
[2018-10-12 06:11] LABS: PHOSPHORUS 3.8 mg/dL (2.5-4.9)
[2018-10-12] MEDS: FENTANYL CITRATE/PF 500 MCG in SODIUM CHLORIDE 0.9% 40 ML IV PRN ×2 (06:35→10:57)
[2018-10-12] MEDS: ACETYLCYSTEINE 100MG/ML 10% VIAL 4ML INH SCH ×2 (08:06→16:44)
[2018-10-12 08:21] LABS: BG BASE EXCESS 1.4 mmol/L (-2.0-2.0); BG CARBOXYHEMOGLOBIN 0.2 % (0.5-1.5); BG DEOXYHEMOGLOBIN 4.2 % (0.0-5.0); BG FRACTION INSPIRED OXYGEN 40; BG HCO3 ACT 26.3 mmol/L (22.0-26.0); BG METHEMOGLOBIN 0.2 % (0.0-1.5); BG OXYGEN SATURATION 95.8 % (92.0-98.5); BG OXYHEMOGLOBIN 95.4 % (94.0-97.0); BG PCO2 42.3 mmHg (35.0-45.0); BG PH 7.411 (7.350-7.450); BG PO2 85.1 mmHg (75.0-100.0); BG SAMPLE SITE RIGHT RADIAL; BG TIDAL VOLUME(mL) 550 mL; BG TOTAL HEMOGLOBIN 13.7 g/dL (12.0-18.0); BG VENT MODE VENT - A/C; BG VENT RATE 12 set
[2018-10-12] MEDS: FOLIC ACID 1MG TABLET PO SCH (09:00)
[2018-10-12] MEDS: PANTOPRAZOLE SODIUM 40 MG/VIAL IV SCH (09:00)
[2018-10-12] MEDS: ENOXAPARIN 100MG/ML SYR SUBCUT SCH ×2 (09:03→21:33)
[2018-10-12] MEDS ORDERED: RACEPINEPHRINE 2.25% 0.5ML NEB VIAL HHN PRN (10:30)
[2018-10-12] MEDS: MIDAZOLAM HCL 100 MG in DEXT 5% WATER 80 ML IV PRN (10:56)
[2018-10-12] MEDS ORDERED: LIDOCAINE HCL 1% 20ML VIAL (Pyxis) INJ ONE (14:10)
[2018-10-12] MEDS: DEXAMETHASONE 4MG TABLET PO SCH (17:41)
[2018-10-12] MEDS: QUETIAPINE FUMARATE 25MG TABLET PO SCH (21:31)
[2018-10-12] MEDS: ATORVASTATIN CALCIUM 20MG TABLET PO SCH (21:31)
[2018-10-12] MEDS: PHENYTOIN SODIUM EXTENDED 100MG CAPSULE PO SCH (21:31)
[2018-10-13] VITALS (83 sets, daily range): BP systolic 94–155; BP diastolic 54–108
[2018-10-13] MEDS: IPRATROPIUM BROMIDE (0.02%) 0.5MG/2.5ML NEB HHN SCH ×6 (00:17→20:48)
[2018-10-13] MEDS: ACETYLCYSTEINE 100MG/ML 10% VIAL 4ML INH SCH ×3 (00:17→16:20)
[2018-10-13] MEDS: DEXAMETHASONE 4MG TABLET PO SCH ×3 (00:21→11:36)
[2018-10-13] MEDS: FENTANYL CITRATE/PF 500 MCG in SODIUM CHLORIDE 0.9% 40 ML IV PRN ×3 (03:32→18:53)
[2018-10-13] MEDS: MIDAZOLAM HCL 50 MG in DEXTROSE 5% WATER 40 ML IV PRN ×2 (03:33→10:39)
[2018-10-13] MEDS: PIPERACILLIN/TAZ 3.375G PREMIX 50 ML IV SCH ×3 (03:43→15:12)
[2018-10-13 05:33] LABS: BASOPHILS % 0.1 % (0.0-2.0); EOSINOPHILS % 0.1 % (0.0-5.0); HEMOGLOBIN. 13.3 g/dL (14.0-18.0); MEAN CORPUSCULAR HEMOGLOBIN 31.1 pg (28.0-32.0); MEAN CORPUSCULAR VOLUME 86.6 fL (80.0-94.0); MEAN PLATELET VOLUME 8.7 fl (7.4-10.4); MONOCYTES % 9.6 % (2.0-8.0); NEUTROPHILS % 82.2 % (40.0-76.0); PLATELET 227 x1000/uL (130-400); RED BLOOD CELL COUNT 4.27 mill/uL (4.7-6.1); RED CELL DISTRIBUTION WIDTH 15.3 % (11.6-14.6)
[2018-10-13 08:12] LABS: BG BASE EXCESS 2.4 mmol/L (-2.0-2.0); BG CARBOXYHEMOGLOBIN 0.4 % (0.5-1.5); BG DEOXYHEMOGLOBIN 4.6 % (0.0-5.0); BG FRACTION INSPIRED OXYGEN 40; BG HCO3 ACT 25.5 mmol/L (22.0-26.0); BG METHEMOGLOBIN 0.3 % (0.0-1.5); BG OXYGEN SATURATION 95.4 % (92.0-98.5); BG OXYHEMOGLOBIN 94.7 % (94.0-97.0); BG PCO2 34.8 mmHg (35.0-45.0); BG PH 7.483 (7.350-7.450); BG PO2 80.4 mmHg (75.0-100.0); BG SAMPLE SITE RIGHT BRACHIAL; BG TIDAL VOLUME(mL) 550 mL; BG TOTAL HEMOGLOBIN 13.8 g/dL (12.0-18.0); BG VENT MODE VENT - A/C; BG VENT RATE 12 set
[2018-10-13] MEDS: PANTOPRAZOLE SODIUM 40 MG/VIAL IV SCH (09:10)
[2018-10-13] MEDS: FOLIC ACID 1MG TABLET PO SCH (09:11)
[2018-10-13] MEDS: QUETIAPINE FUMARATE 25MG TABLET PO SCH ×2 (09:11→21:24)
[2018-10-13] MEDS: ENOXAPARIN 100MG/ML SYR SUBCUT SCH ×2 (10:00→21:25)
[2018-10-13] MEDS ORDERED: MIDAZOLAM HCL 50 MG in DEXTROSE 5% WATER 40 ML IV PRN (17:00)
[2018-10-13] MEDS: DEXAMETHASONE 4MG/ML 1ML VIAL IV SCH ×2 (18:52→23:56)
[2018-10-13] MEDS ORDERED: MIDAZOLAM HCL 100 MG in DEXTROSE 5% WATER 80 ML IV PRN (20:53)
[2018-10-13] MEDS ORDERED: FENTANYL CITRATE/PF 1,000 MCG in SODIUM CHLORIDE 0.9% 80 ML IV PRN (20:53)
[2018-10-13] MEDS: PIPERACILLIN/TAZ 2.25G PREMIX 50 ML IV SCH (21:24)
[2018-10-13] MEDS: PHENYTOIN SODIUM EXTENDED 100MG CAPSULE PO SCH (21:24)
[2018-10-13] MEDS: ATORVASTATIN CALCIUM 20MG TABLET PO SCH (21:24)
[2018-10-14] VITALS (95 sets, daily range): BP systolic 90–199; BP diastolic 28–127
[2018-10-14] MEDS: IPRATROPIUM BROMIDE (0.02%) 0.5MG/2.5ML NEB HHN SCH ×6 (00:01→20:37)
[2018-10-14] MEDS: PIPERACILLIN/TAZ 2.25G PREMIX 50 ML IV SCH ×2 (03:54→10:33)
[2018-10-14] MEDS: DEXAMETHASONE 4MG/ML 1ML VIAL IV SCH ×3 (05:49→18:09)
[2018-10-14 06:00] LABS: BASOPHILS % 0.2 % (0.0-2.0); EOSINOPHILS % 0.1 % (0.0-5.0); HEMATOCRIT. 36.9 % (42.0-52.0); HEMOGLOBIN. 12.8 g/dL (14.0-18.0); LYMPHOCYTES % 9.3 % (20.0-50.0); MEAN CORPUSCULAR HEMOGLOBIN 30.1 pg (28.0-32.0); MEAN CORPUSCULAR VOLUME 87.2 fL (80.0-94.0); MEAN PLATELET VOLUME 8.9 fl (7.4-10.4); MONOCYTES % 9.7 % (2.0-8.0); NEUTROPHILS % 80.7 % (40.0-76.0); PLATELET 258 x1000/uL (130-400); RED BLOOD CELL COUNT 4.23 mill/uL (4.7-6.1); RED CELL DISTRIBUTION WIDTH 15.2 % (11.6-14.6)
[2018-10-14 06:27] LABS: PHOSPHORUS 4.2 mg/dL (2.5-4.9)
[2018-10-14] MEDS: ACETYLCYSTEINE 100MG/ML 10% VIAL 4ML INH SCH ×3 (08:19→15:59)
[2018-10-14] MEDS: FOLIC ACID 1MG TABLET PO SCH (08:32)
[2018-10-14] MEDS: QUETIAPINE FUMARATE 25MG TABLET PO SCH (08:32)
[2018-10-14] MEDS: DEXT 5%/0.45% NACL 1000ML 1,000 ML IV SCH ×2 (08:32→21:10)
[2018-10-14] MEDS: PANTOPRAZOLE SODIUM 40 MG/VIAL IV SCH (08:32)
[2018-10-14 09:09] LABS: BG BASE EXCESS 3.7 mmol/L (-2.0-2.0); BG CARBOXYHEMOGLOBIN 0.3 % (0.5-1.5); BG DEOXYHEMOGLOBIN 3.4 % (0.0-5.0); BG FRACTION INSPIRED OXYGEN 40; BG HCO3 ACT 29.9 mmol/L (22.0-26.0); BG METHEMOGLOBIN 0.4 % (0.0-1.5); BG OXYGEN SATURATION 96.6 % (92.0-98.5); BG OXYHEMOGLOBIN 95.9 % (94.0-97.0); BG PH 7.378 (7.350-7.450); BG PO2 97.1 mmHg (75.0-100.0); BG SAMPLE SITE RIGHT RADIAL; BG TIDAL VOLUME(mL) 550 mL; BG VENT MODE VENT - A/C; BG VENT RATE 12 set
[2018-10-14] MEDS ORDERED: MIDAZOLAM HCL 100 MG in DEXT 5% WATER 80 ML IV PRN (09:30)
[2018-10-14] MEDS: FENTANYL CITRATE/PF 1,000 MCG in SODIUM CHLORIDE 0.9% 80 ML IV PRN ×2 (10:35→21:54)
[2018-10-14] MEDS: ENOXAPARIN 100MG/ML SYR SUBCUT SCH (10:36)
[2018-10-14] MEDS: MIDAZOLAM HCL 100 MG in DEXT 5% WATER 80 ML IV PRN ×2 (11:21→21:55)
[2018-10-14] MEDS ORDERED: DILTIAZEM HCL 5MG/ML 5ML VIAL IV NR (11:45)
[2018-10-14] MEDS: RISPERIDONE 0.5MG TABLET PO SCH (12:06)
[2018-10-14] MEDS: HYDRALAZINE 20MG/ML VIAL IV PRN (17:49)
[2018-10-14] MEDS: PHENYTOIN SODIUM EXTENDED 100MG CAPSULE PO SCH (21:11)
[2018-10-14] MEDS: ATORVASTATIN CALCIUM 20MG TABLET PO SCH (21:11)
[2018-10-14] MEDS: ENOXAPARIN 120MG/0.8ML SYR SUBCUT SCH (21:12)
[2018-10-15] VITALS (85 sets, daily range): BP systolic 92–185; BP diastolic 46–128
[2018-10-15] MEDS: IPRATROPIUM BROMIDE (0.02%) 0.5MG/2.5ML NEB HHN SCH ×6 (00:20→20:18)
[2018-10-15] MEDS: ACETYLCYSTEINE 100MG/ML 10% VIAL 4ML INH SCH ×3 (00:20→16:27)
[2018-10-15] MEDS: DEXAMETHASONE 4MG/ML 1ML VIAL IV SCH ×5 (01:31→23:37)
[2018-10-15] MEDS: RISPERIDONE 0.5MG TABLET PO SCH ×3 (01:32→20:06)
[2018-10-15 06:10] LABS: BASOPHILS % 0.3 % (0.0-2.0); EOSINOPHILS % 0.1 % (0.0-5.0); HEMATOCRIT. 36.4 % (42.0-52.0); HEMOGLOBIN. 12.7 g/dL (14.0-18.0); LYMPHOCYTES % 8.2 % (20.0-50.0); MEAN CORPUSCULAR HEMOGLOBIN 30.6 pg (28.0-32.0); MEAN CORPUSCULAR VOLUME 87.9 fL (80.0-94.0); MEAN PLATELET VOLUME 8.7 fl (7.4-10.4); MONOCYTES % 9.1 % (2.0-8.0); NEUTROPHILS % 82.3 % (40.0-76.0); PLATELET 275 x1000/uL (130-400); RED BLOOD CELL COUNT 4.14 mill/uL (4.7-6.1); RED CELL DISTRIBUTION WIDTH 15.2 % (11.6-14.6)
[2018-10-15 06:27] LABS: PHOSPHORUS 3.8 mg/dL (2.5-4.9)
[2018-10-15] MEDS: MIDAZOLAM HCL 100 MG in DEXT 5% WATER 80 ML IV PRN ×2 (07:48→17:20)
[2018-10-15] MEDS: FENTANYL CITRATE/PF 1,000 MCG in SODIUM CHLORIDE 0.9% 80 ML IV PRN ×2 (07:49→18:20)
[2018-10-15] MEDS: FOLIC ACID 1MG TABLET PO SCH (08:32)
[2018-10-15] MEDS: PANTOPRAZOLE SODIUM 40 MG/VIAL IV SCH (08:32)
[2018-10-15] MEDS: ENOXAPARIN 120MG/0.8ML SYR SUBCUT SCH ×2 (10:35→21:14)
[2018-10-15] MEDS: DEXT 5%/0.45% NACL 1000ML 1,000 ML IV SCH (10:45)
[2018-10-15] MEDS: HYDRALAZINE 20MG/ML VIAL IV PRN (17:27)
[2018-10-15] MEDS: ACETAMINOPHEN 650MG/20.3ML UDC PO PRN (20:01)
[2018-10-15] MEDS: ATORVASTATIN CALCIUM 20MG TABLET PO SCH (20:05)
[2018-10-15] MEDS: PHENYTOIN SODIUM EXTENDED 100MG CAPSULE PO SCH (20:06)
[2018-10-15] MEDS: CLONIDINE 0.1MG TABLET PO PRN (20:11)
[2018-10-15] MEDS: PROPOFOL 10MG/ML 100ML 100 ML IV PRN (22:36)
[2018-10-15] MEDS: QUETIAPINE FUMARATE 25MG TABLET PO SCH (22:36)
[2018-10-16] VITALS (53 sets, daily range): BP systolic 88–163; BP diastolic 61–108
[2018-10-16] MEDS: ACETYLCYSTEINE 100MG/ML 10% VIAL 4ML INH SCH ×2 (00:20→09:04)
[2018-10-16] MEDS: IPRATROPIUM BROMIDE (0.02%) 0.5MG/2.5ML NEB HHN SCH ×4 (00:20→15:35)
[2018-10-16] MEDS: PROPOFOL 10MG/ML 100ML 100 ML IV PRN ×4 (02:59→21:24)
[2018-10-16 05:15] LABS: BASOPHILS % 0.4 % (0.0-2.0); EOSINOPHILS % 0.4 % (0.0-5.0); HEMATOCRIT. 35.2 % (42.0-52.0); HEMOGLOBIN. 12.1 g/dL (14.0-18.0); LYMPHOCYTES % 13.8 % (20.0-50.0); MEAN CORPUSCULAR HEMOGLOBIN 30.2 pg (28.0-32.0); MEAN CORPUSCULAR VOLUME 87.8 fL (80.0-94.0); MEAN PLATELET VOLUME 8.5 fl (7.4-10.4); MONOCYTES % 7.2 % (2.0-8.0); NEUTROPHILS % 78.2 % (40.0-76.0); PLATELET 279 x1000/uL (130-400); RED BLOOD CELL COUNT 4.01 mill/uL (4.7-6.1); RED CELL DISTRIBUTION WIDTH 15.3 % (11.6-14.6)
[2018-10-16] MEDS: DEXAMETHASONE 4MG/ML 1ML VIAL IV SCH ×3 (05:26→17:18)
[2018-10-16] MEDS: DEXT 5%/0.45% NACL 1000ML 1,000 ML IV SCH (05:27)
[2018-10-16 05:29] LABS: PHOSPHORUS 3.6 mg/dL (2.5-4.9)
[2018-10-16] MEDS: FENTANYL CITRATE/PF 1,000 MCG in SODIUM CHLORIDE 0.9% 80 ML IV PRN (06:28)
[2018-10-16] MEDS: MIDAZOLAM HCL 100 MG in DEXT 5% WATER 80 ML IV PRN (06:28)
[2018-10-16] MEDS: DEXT 5%/0.2% NACL 1,000 ML IV SCH (09:00)
[2018-10-16] MEDS: FOLIC ACID 1MG TABLET PO SCH (09:30)
[2018-10-16] MEDS: RISPERIDONE 0.5MG TABLET PO SCH (09:31)
[2018-10-16] MEDS: QUETIAPINE FUMARATE 25MG TABLET PO SCH ×2 (09:31→17:18)
[2018-10-16] MEDS: ENOXAPARIN 120MG/0.8ML SYR SUBCUT SCH ×2 (09:32→21:21)
[2018-10-16] MEDS: PANTOPRAZOLE SODIUM 40 MG/VIAL IV SCH (09:32)
[2018-10-16] MEDS: CLONIDINE 0.1MG TABLET PO PRN (18:46)
[2018-10-16] MEDS: IPRATROPIUM/ALBUTEROL 0.5-3(2.5)MG/3ML NEB HHN PRN ×2 (20:49→23:49)
[2018-10-16] MEDS: PHENYTOIN SODIUM EXTENDED 100MG CAPSULE PO SCH (20:56)
[2018-10-16] MEDS: ATORVASTATIN CALCIUM 20MG TABLET PO SCH (20:56)
[2018-10-17] VITALS (83 sets, daily range): BP systolic 91–168; BP diastolic 48–143
[2018-10-17] MEDS: DEXAMETHASONE 4MG/ML 1ML VIAL IV SCH ×4 (00:43→17:05)
[2018-10-17] MEDS ORDERED: PROPOFOL 10MG/ML 100ML 100 ML IV PRN (03:00)
[2018-10-17] MEDS: MIDAZOLAM HCL 100 MG in DEXT 5% WATER 80 ML IV PRN ×2 (03:41→20:23)
[2018-10-17] MEDS: IPRATROPIUM BROMIDE (0.02%) 0.5MG/2.5ML NEB HHN SCH ×6 (03:51→23:45)
[2018-10-17 05:10] LABS: BASOPHILS % 0.2 % (0.0-2.0); EOSINOPHILS % 0.4 % (0.0-5.0); HEMATOCRIT. 31.4 % (42.0-52.0); HEMOGLOBIN. 11.2 g/dL (14.0-18.0); LYMPHOCYTES % 12.7 % (20.0-50.0); MEAN CORPUSCULAR HEMOGLOBIN 31.1 pg (28.0-32.0); MEAN PLATELET VOLUME 8.4 fl (7.4-10.4); MONOCYTES % 8.2 % (2.0-8.0); NEUTROPHILS % 78.5 % (40.0-76.0); PLATELET 272 x1000/uL (130-400); RED BLOOD CELL COUNT 3.61 mill/uL (4.7-6.1); RED CELL DISTRIBUTION WIDTH 15.5 % (11.6-14.6)
[2018-10-17] MEDS: DEXT 5%/0.2% NACL 1,000 ML IV SCH ×2 (05:13→17:59)
[2018-10-17 06:03] LABS: PHOSPHORUS 4.6 mg/dL (2.5-4.9)
[2018-10-17] MEDS: PROPOFOL 10MG/ML 100ML 100 ML IV PRN ×3 (07:24→18:42)
[2018-10-17] MEDS: ACETYLCYSTEINE 100MG/ML 10% VIAL 4ML INH SCH (08:46)
[2018-10-17] MEDS: QUETIAPINE FUMARATE 25MG TABLET PO SCH ×2 (08:59→16:20)
[2018-10-17] MEDS: PANTOPRAZOLE SODIUM 40 MG/VIAL IV SCH (08:59)
[2018-10-17] MEDS: FOLIC ACID 1MG TABLET PO SCH (08:59)
[2018-10-17] MEDS: ENOXAPARIN 120MG/0.8ML SYR SUBCUT SCH (09:02)
[2018-10-17 10:10] LABS: BG BASE EXCESS 4.4 mmol/L (-2.0-2.0); BG CARBOXYHEMOGLOBIN 0.3 % (0.5-1.5); BG DEOXYHEMOGLOBIN 2.9 % (0.0-5.0); BG FRACTION INSPIRED OXYGEN 40; BG HCO3 ACT 28.1 mmol/L (22.0-26.0); BG METHEMOGLOBIN 0.3 % (0.0-1.5); BG OXYGEN SATURATION 97.1 % (92.0-98.5); BG OXYHEMOGLOBIN 96.5 % (94.0-97.0); BG PCO2 38.6 mmHg (35.0-45.0); BG PO2 99.5 mmHg (75.0-100.0); BG SAMPLE SITE RIGHT RADIAL; BG TIDAL VOLUME(mL) 550 mL; BG TOTAL HEMOGLOBIN 12.8 g/dL (12.0-18.0); BG VENT MODE VENT - A/C; BG VENT RATE 12 set
[2018-10-17] MEDS: ATORVASTATIN CALCIUM 20MG TABLET PO SCH (20:22)
[2018-10-17] MEDS: PHENYTOIN SODIUM EXTENDED 100MG CAPSULE PO SCH (20:22)
[2018-10-17] MEDS: FENTANYL CITRATE/PF 1,000 MCG in SODIUM CHLORIDE 0.9% 80 ML IV PRN (20:23)
[2018-10-18] VITALS (86 sets, daily range): BP systolic 94–174; BP diastolic 38–114
[2018-10-18] MEDS: DEXAMETHASONE 4MG/ML 1ML VIAL IV SCH ×5 (00:03→23:54)
[2018-10-18] MEDS: LORAZEPAM 2MG/ML CPJ IV PRN ×2 (00:35→05:52)
[2018-10-18] MEDS: PROPOFOL 10MG/ML 100ML 100 ML IV PRN ×3 (01:35→17:07)
[2018-10-18] MEDS: IPRATROPIUM BROMIDE (0.02%) 0.5MG/2.5ML NEB HHN SCH ×5 (03:58→20:42)
[2018-10-18 05:38] LABS: BASOPHILS % 0.3 % (0.0-2.0); EOSINOPHILS % 0.5 % (0.0-5.0); HEMATOCRIT. 31.6 % (42.0-52.0); HEMOGLOBIN. 10.9 g/dL (14.0-18.0); LYMPHOCYTES % 18.4 % (20.0-50.0); MEAN CORPUSCULAR HEMOGLOBIN 30.3 pg (28.0-32.0); MEAN CORPUSCULAR VOLUME 88.1 fL (80.0-94.0); MEAN PLATELET VOLUME 8.4 fl (7.4-10.4); MONOCYTES % 8.6 % (2.0-8.0); NEUTROPHILS % 72.2 % (40.0-76.0); PLATELET 272 x1000/uL (130-400); RED BLOOD CELL COUNT 3.59 mill/uL (4.7-6.1); RED CELL DISTRIBUTION WIDTH 15.6 % (11.6-14.6)
[2018-10-18 05:55] LABS: PHOSPHORUS 4.1 mg/dL (2.5-4.9)
[2018-10-18] MEDS: FOLIC ACID 1MG TABLET PO SCH ×2 (08:44→08:55)
[2018-10-18] MEDS: QUETIAPINE FUMARATE 25MG TABLET PO SCH ×3 (08:44→17:06)
[2018-10-18] MEDS: PANTOPRAZOLE SODIUM 40 MG/VIAL IV SCH (08:44)
[2018-10-18] MEDS: FENTANYL CITRATE/PF 1,000 MCG in SODIUM CHLORIDE 0.9% 80 ML IV PRN ×2 (08:46→20:39)
[2018-10-18] MEDS: MIDAZOLAM HCL 100 MG in DEXT 5% WATER 80 ML IV PRN ×2 (08:46→20:39)
[2018-10-18] MEDS ORDERED: CEFAZOLIN 1000MG PREMIX 50 ML IV SCH (11:30)
[2018-10-18] MEDS ORDERED: FENTANYL CITRATE/PF 50MCG/ML 2ML VIAL ONE (11:36)
[2018-10-18] MEDS ORDERED: MIDAZOLAM HCL 5 MG/5 ML VIAL ONE (11:37)
[2018-10-18 12:20] LABS: PROTHROMBIN TIME 9.9 sec (9.6-11.0)
[2018-10-18] MEDS ORDERED: BACTERIOSTATIC SODIUM CHLORIDE 0.9% 30ML VIAL IJ ONE (13:19)
[2018-10-18] MEDS: DEXT 5%/0.2% NACL 1,000 ML IV SCH (17:54)
[2018-10-18] MEDS: IPRATROPIUM/ALBUTEROL 0.5-3(2.5)MG/3ML NEB HHN PRN (20:35)
[2018-10-18] MEDS: PHENYTOIN SODIUM EXTENDED 100MG CAPSULE PO SCH (20:38)
[2018-10-18] MEDS: ATORVASTATIN CALCIUM 20MG TABLET PO SCH (20:38)
[2018-10-19] VITALS (94 sets, daily range): BP systolic 86–181; BP diastolic 27–121
[2018-10-19] MEDS: IPRATROPIUM BROMIDE (0.02%) 0.5MG/2.5ML NEB HHN SCH ×6 (00:15→21:38)
[2018-10-19] MEDS: PROPOFOL 10MG/ML 100ML 100 ML IV PRN ×2 (01:27→15:26)
[2018-10-19] MEDS: DEXAMETHASONE 4MG/ML 1ML VIAL IV SCH (05:13)
[2018-10-19] MEDS: DEXT 5%/0.2% NACL 1,000 ML IV SCH ×2 (05:14→17:20)
[2018-10-19 05:32] LABS: BASOPHILS % 0.2 % (0.0-2.0); EOSINOPHILS % 0.1 % (0.0-5.0); HEMATOCRIT. 34.5 % (42.0-52.0); HEMOGLOBIN. 12.1 g/dL (14.0-18.0); MEAN PLATELET VOLUME 8.5 fl (7.4-10.4); NEUTROPHILS % 75.7 % (40.0-76.0); PLATELET 296 x1000/uL (130-400); RED BLOOD CELL COUNT 3.92 mill/uL (4.7-6.1); RED CELL DISTRIBUTION WIDTH 15.4 % (11.6-14.6)
[2018-10-19 05:45] LABS: PHOSPHORUS 3.8 mg/dL (2.5-4.9)
[2018-10-19] MEDS: MIDAZOLAM HCL 100 MG in DEXT 5% WATER 80 ML IV PRN ×2 (06:51→17:17)
[2018-10-19 09:29] LABS: BG BASE EXCESS 3.7 mmol/L (-2.0-2.0); BG CARBOXYHEMOGLOBIN 0.3 % (0.5-1.5); BG DEOXYHEMOGLOBIN 2.4 % (0.0-5.0); BG HCO3 ACT 28.1 mmol/L (22.0-26.0); BG METHEMOGLOBIN 0.2 % (0.0-1.5); BG OXYGEN SATURATION 97.6 % (92.0-98.5); BG OXYHEMOGLOBIN 97.1 % (94.0-97.0); BG PCO2 41.7 mmHg (35.0-45.0); BG PH 7.446 (7.350-7.450); BG PO2 110.7 mmHg (75.0-100.0); BG SAMPLE SITE RIGHT RADIAL; BG TIDAL VOLUME(mL) 550 mL; BG TOTAL HEMOGLOBIN 11.8 g/dL (12.0-18.0); BG VENT MODE VENT - A/C; BG VENT RATE 12 set
[2018-10-19] MEDS: PANTOPRAZOLE SODIUM 40 MG/VIAL IV SCH (09:59)
[2018-10-19] MEDS: FOLIC ACID 1MG TABLET PO SCH (09:59)
[2018-10-19] MEDS: QUETIAPINE FUMARATE 50MG TABLET NG SCH ×2 (10:00→20:38)
[2018-10-19] MEDS: FENTANYL CITRATE/PF 1,000 MCG in SODIUM CHLORIDE 0.9% 80 ML IV PRN (17:18)
[2018-10-19] MEDS: ATORVASTATIN CALCIUM 20MG TABLET PO SCH (20:38)
[2018-10-19] MEDS: PHENYTOIN SODIUM EXTENDED 100MG CAPSULE PO SCH (20:38)
[2018-10-20] VITALS (93 sets, daily range): BP systolic 84–195; BP diastolic 44–113
[2018-10-20] MEDS: PROPOFOL 10MG/ML 100ML 100 ML IV PRN ×2 (00:34→08:10)
[2018-10-20] MEDS: IPRATROPIUM BROMIDE (0.02%) 0.5MG/2.5ML NEB HHN SCH ×5 (00:54→20:48)
[2018-10-20] MEDS: MIDAZOLAM HCL 100 MG in DEXT 5% WATER 80 ML IV PRN ×2 (02:48→13:35)
[2018-10-20] MEDS: DEXT 5%/0.2% NACL 1,000 ML IV SCH ×2 (05:35→20:57)
[2018-10-20] MEDS: FENTANYL CITRATE/PF 1,000 MCG in SODIUM CHLORIDE 0.9% 80 ML IV PRN ×3 (05:38→23:51)
[2018-10-20 05:58] LABS: BASOPHILS % 0.3 % (0.0-2.0); EOSINOPHILS % 0.7 % (0.0-5.0); HEMATOCRIT. 33.6 % (42.0-52.0); HEMOGLOBIN. 11.8 g/dL (14.0-18.0); LYMPHOCYTES % 18.7 % (20.0-50.0); MEAN CORPUSCULAR HEMOGLOBIN 30.3 pg (28.0-32.0); MEAN CORPUSCULAR VOLUME 86.1 fL (80.0-94.0); MEAN PLATELET VOLUME 8.3 fl (7.4-10.4); MONOCYTES % 9.4 % (2.0-8.0); NEUTROPHILS % 70.9 % (40.0-76.0); PLATELET 264 x1000/uL (130-400); RED BLOOD CELL COUNT 3.91 mill/uL (4.7-6.1); RED CELL DISTRIBUTION WIDTH 15.2 % (11.6-14.6)
[2018-10-20 06:03] LABS: PHOSPHORUS 3.5 mg/dL (2.5-4.9)
[2018-10-20] MEDS ORDERED: POTASSIUM CHLORIDE INJ 40 MEQ in DEXT 5% WATER 250 ML IV SCH (08:00)
[2018-10-20] MEDS: PANTOPRAZOLE SODIUM 40 MG/VIAL IV SCH (08:08)
[2018-10-20] MEDS: FOLIC ACID 1MG TABLET PO SCH (08:09)
[2018-10-20] MEDS: QUETIAPINE FUMARATE 50MG TABLET NG SCH ×2 (08:09→20:27)
[2018-10-20] MEDS ORDERED: LORAZEPAM 2MG/ML CPJ IV PRN (10:45)
[2018-10-20] MEDS: LORAZEPAM 2MG/ML CPJ IV PRN ×2 (11:25→20:48)
[2018-10-20] MEDS ORDERED: ROCURONIUM BROMIDE 10MG/ML VIAL 5ML IV ONE (17:41)
[2018-10-20] MEDS ORDERED: MIDAZOLAM HCL 2 MG/2 ML VIAL ONE (17:43)
[2018-10-20] MEDS ORDERED: FENTANYL CITRATE/PF 50MCG/ML 2ML VIAL ONE (18:02)
[2018-10-20] MEDS: ATORVASTATIN CALCIUM 20MG TABLET PO SCH (20:27)
[2018-10-20] MEDS: PHENYTOIN SODIUM EXTENDED 100MG CAPSULE PO SCH (20:27)
[2018-10-20] MEDS: HYDRALAZINE 20MG/ML VIAL IV PRN (20:47)
[2018-10-21] VITALS (95 sets, daily range): BP systolic 82–188; BP diastolic 49–125
[2018-10-21] MEDS: MIDAZOLAM HCL 100 MG in DEXT 5% WATER 80 ML IV PRN ×3 (00:22→20:48)
[2018-10-21] MEDS: IPRATROPIUM BROMIDE (0.02%) 0.5MG/2.5ML NEB HHN SCH ×6 (00:35→20:26)
[2018-10-21 05:55] LABS: BASOPHILS % 0.4 % (0.0-2.0); EOSINOPHILS % 0.5 % (0.0-5.0); HEMATOCRIT. 34.2 % (42.0-52.0); HEMOGLOBIN. 12.2 g/dL (14.0-18.0); MEAN CORPUSCULAR HEMOGLOBIN 30.8 pg (28.0-32.0); MEAN CORPUSCULAR VOLUME 86.3 fL (80.0-94.0); MEAN PLATELET VOLUME 8.3 fl (7.4-10.4); MONOCYTES % 6.6 % (2.0-8.0); NEUTROPHILS % 80.5 % (40.0-76.0); PLATELET 274 x1000/uL (130-400); RED BLOOD CELL COUNT 3.96 mill/uL (4.7-6.1); RED CELL DISTRIBUTION WIDTH 15.1 % (11.6-14.6)
[2018-10-21] MEDS: LORAZEPAM 2MG/ML CPJ IV PRN ×4 (06:48→20:48)
[2018-10-21] MEDS: ACETAMINOPHEN 650MG/20.3ML UDC PO PRN ×3 (07:37→20:32)
[2018-10-21] MEDS: HYDRALAZINE 20MG/ML VIAL IV PRN (07:38)
[2018-10-21] MEDS: FOLIC ACID 1MG TABLET PO SCH (07:39)
[2018-10-21] MEDS: QUETIAPINE FUMARATE 50MG TABLET NG SCH ×2 (07:39→20:31)
[2018-10-21] MEDS: DEXT 5%/0.2% NACL 1,000 ML IV SCH (08:01)
[2018-10-21] MEDS: PANTOPRAZOLE SODIUM 40 MG/VIAL IV SCH (08:01)
[2018-10-21] MEDS: FENTANYL CITRATE/PF 1,000 MCG in SODIUM CHLORIDE 0.9% 80 ML IV PRN ×2 (08:04→23:15)
[2018-10-21 08:23] LABS: BG BASE EXCESS 2.8 mmol/L (-2.0-2.0); BG CARBOXYHEMOGLOBIN 0.3 % (0.5-1.5); BG DEOXYHEMOGLOBIN 2.7 % (0.0-5.0); BG FRACTION INSPIRED OXYGEN 40; BG HCO3 ACT 25.7 mmol/L (22.0-26.0); BG METHEMOGLOBIN 0.7 % (0.0-1.5); BG OXYGEN SATURATION 97.3 % (92.0-98.5); BG OXYHEMOGLOBIN 96.3 % (94.0-97.0); BG PCO2 34.2 mmHg (35.0-45.0); BG PH 7.493 (7.350-7.450); BG SAMPLE SITE RIGHT RADIAL; BG TIDAL VOLUME(mL) 550 mL; BG TOTAL HEMOGLOBIN 14.1 g/dL (12.0-18.0); BG VENT MODE VENT - A/C; BG VENT RATE 12 set
[2018-10-21] MEDS ORDERED: KCL 20MEQ/100ML PREMIX 100 ML IV NR (10:00)
[2018-10-21] MEDS: CEFEPIME 1,000 MG in DEXTROSE 5% WATER 50 ML IV SCH ×2 (11:28→23:19)
[2018-10-21] MEDS: HALOPERIDOL LACTATE 5MG/ML VIAL IM PRN (13:06)
[2018-10-21 13:08] LABS: CLARITY URINE CLEAR (CLEAR); COLOR URINE YELLOW (YELLOW); KETONES URINE NEGATIVE (NEGATIVE); LEUKOCYTE ESTERASE URINE NEGATIVE (NEGATIVE); NITRITE URINE NEGATIVE (NEGATIVE); OCCULT BLOOD URINE NEGATIVE (NEGATIVE); PH URINE 6.5 (4.5-8.0); PROTEIN URINE NEGATIVE (NEGATIVE); SPECIFIC GRAVITY URINE 1.009 (1.005-1.030); UROBILINOGEN URINE 0.2 E.U./dL (0.2-1.0)
[2018-10-21] MEDS: MORPHINE SULFATE 4 MG/ML CPJ (NOT FOR IM USE) IV PRN (16:04)
[2018-10-21] MEDS ORDERED: VANCOMYCIN 2,000 MG in DEXT 5% WATER 500 ML IV NR (16:30)
[2018-10-21] MEDS ORDERED: VANCOMYCIN 1,500 MG in DEXT 5% WATER 250 ML IV NR (17:30)
[2018-10-21] MEDS: ATORVASTATIN CALCIUM 20MG TABLET PO SCH (20:30)
[2018-10-21] MEDS: PHENYTOIN 100 MG/4 ML UDC NG SCH (20:31)
[2018-10-21] MEDS: ENOXAPARIN 120MG/0.8ML SYR SUBCUT SCH (21:47)
[2018-10-22] VITALS (93 sets, daily range): BP systolic 90–178; BP diastolic 57–113
[2018-10-22] MEDS: IPRATROPIUM BROMIDE (0.02%) 0.5MG/2.5ML NEB HHN SCH ×6 (00:17→20:35)
[2018-10-22] MEDS: DEXT 5%/0.2% NACL 1,000 ML IV SCH (03:10)
[2018-10-22 05:23] LABS: BASOPHILS % 0.2 % (0.0-2.0); EOSINOPHILS % 0.6 % (0.0-5.0); HEMATOCRIT. 34.2 % (42.0-52.0); HEMOGLOBIN. 11.8 g/dL (14.0-18.0); LYMPHOCYTES % 10.8 % (20.0-50.0); MEAN CORPUSCULAR HEMOGLOBIN 30.3 pg (28.0-32.0); MEAN CORPUSCULAR VOLUME 87.7 fL (80.0-94.0); MEAN PLATELET VOLUME 8.2 fl (7.4-10.4); MONOCYTES % 8.1 % (2.0-8.0); NEUTROPHILS % 80.3 % (40.0-76.0); PLATELET 237 x1000/uL (130-400); RED CELL DISTRIBUTION WIDTH 15.3 % (11.6-14.6)
[2018-10-22 05:36] LABS: PHOSPHORUS 3.2 mg/dL (2.5-4.9)
[2018-10-22] MEDS: LORAZEPAM 2MG/ML CPJ IV PRN ×5 (06:30→21:23)
[2018-10-22] MEDS: HALOPERIDOL LACTATE 5MG/ML VIAL IM PRN ×2 (07:32→18:52)
[2018-10-22] MEDS: ACETAMINOPHEN 650MG/20.3ML UDC PO PRN ×2 (07:45→13:20)
[2018-10-22 08:15] LABS: BG BASE EXCESS 2.7 mmol/L (-2.0-2.0); BG CARBOXYHEMOGLOBIN 0.3 % (0.5-1.5); BG DEOXYHEMOGLOBIN 1.9 % (0.0-5.0); BG HCO3 ACT 27.5 mmol/L (22.0-26.0); BG METHEMOGLOBIN 0.1 % (0.0-1.5); BG OXYGEN SATURATION 98.1 % (92.0-98.5); BG OXYHEMOGLOBIN 97.7 % (94.0-97.0); BG PCO2 42.7 mmHg (35.0-45.0); BG PH 7.426 (7.350-7.450); BG SAMPLE SITE RIGHT RADIAL; BG TIDAL VOLUME(mL) 550 mL; BG TOTAL HEMOGLOBIN 11.8 g/dL (12.0-18.0); BG VENT MODE VENT - A/C; BG VENT RATE 12 set
[2018-10-22] MEDS: FOLIC ACID 1MG TABLET PO SCH (08:45)
[2018-10-22] MEDS: QUETIAPINE FUMARATE 50MG TABLET NG SCH ×2 (08:45→21:08)
[2018-10-22] MEDS: PANTOPRAZOLE SODIUM 40 MG/VIAL IV SCH (08:45)
[2018-10-22] MEDS: ENOXAPARIN 120MG/0.8ML SYR SUBCUT SCH ×2 (11:13→22:53)
[2018-10-22] MEDS: LOPERAMIDE 2 MG/10 ML UDC PO SCH ×2 (13:20→18:52)
[2018-10-22] MEDS: CEFEPIME 1,000 MG in DEXTROSE 5% WATER 50 ML IV SCH ×2 (13:21→23:58)
[2018-10-22] MEDS: MORPHINE SULFATE 4 MG/ML CPJ (NOT FOR IM USE) IV PRN ×2 (13:22→21:23)
[2018-10-22] MEDS: METRONIDAZOLE 500 MG PREMIX 100 ML IV SCH ×2 (13:22→22:52)
[2018-10-22] MEDS: ACETYLCYSTEINE 100MG/ML 10% VIAL 4ML INH SCH (16:44)
[2018-10-22] MEDS ORDERED: VANCOMYCIN 1250MG in DEXTROSE 5% WATER 250ML IV SCH (20:00)
[2018-10-22] MEDS: PHENYTOIN 100 MG/4 ML UDC NG SCH (21:07)
[2018-10-22] MEDS: ATORVASTATIN CALCIUM 20MG TABLET PO SCH (21:07)
[2018-10-23] VITALS (11 sets, daily range): BP systolic 115–153; BP diastolic 75–117
[2018-10-23] MEDS: ACETYLCYSTEINE 100MG/ML 10% VIAL 4ML INH SCH ×3 (00:04→23:59)
[2018-10-23] MEDS: IPRATROPIUM BROMIDE (0.02%) 0.5MG/2.5ML NEB HHN SCH ×6 (00:04→23:58)
[2018-10-23] MEDS: LORAZEPAM 2MG/ML CPJ IV PRN (01:51)
[2018-10-23] MEDS: HALOPERIDOL LACTATE 5MG/ML VIAL IM PRN (03:30)
[2018-10-23] MEDS: METRONIDAZOLE 500 MG PREMIX 100 ML IV SCH ×3 (05:10→22:05)
[2018-10-23 07:40] LABS: BASOPHILS % 0.8 % (0.0-2.0); EOSINOPHILS % 1.3 % (0.0-5.0); HEMATOCRIT. 31.6 % (42.0-52.0); HEMOGLOBIN. 11.2 g/dL (14.0-18.0); LYMPHOCYTES % 16.3 % (20.0-50.0); MEAN CORPUSCULAR VOLUME 87.1 fL (80.0-94.0); MEAN PLATELET VOLUME 8.2 fl (7.4-10.4); MONOCYTES % 8.4 % (2.0-8.0); NEUTROPHILS % 73.2 % (40.0-76.0); PLATELET 209 x1000/uL (130-400); RED BLOOD CELL COUNT 3.63 mill/uL (4.7-6.1)
[2018-10-23 07:52] LABS: PHOSPHORUS 2.6 mg/dL (2.5-4.9)
[2018-10-23] MEDS: LOPERAMIDE 2 MG/10 ML UDC PO SCH ×2 (09:00→17:00)
[2018-10-23] MEDS: ACETAMINOPHEN 650MG/20.3ML UDC PO PRN ×2 (10:29→22:05)
[2018-10-23] MEDS: PANTOPRAZOLE SODIUM 40 MG/VIAL IV SCH (10:30)
[2018-10-23] MEDS: QUETIAPINE FUMARATE 50MG TABLET NG SCH ×2 (10:30→22:05)
[2018-10-23] MEDS: FOLIC ACID 1MG TABLET PO SCH (10:30)
[2018-10-23] MEDS: ENOXAPARIN 120MG/0.8ML SYR SUBCUT SCH ×2 (10:41→22:07)
[2018-10-23] MEDS: CEFEPIME 1,000 MG in DEXTROSE 5% WATER 50 ML IV SCH (13:41)
[2018-10-23] MEDS: VANCOMYCIN 1 G PREMIX 200 ML IV SCH (18:21)
[2018-10-23] MEDS: ATORVASTATIN CALCIUM 20MG TABLET PO SCH (22:05)
[2018-10-23] MEDS: PHENYTOIN 100 MG/4 ML UDC NG SCH (22:07)
[2018-10-24] VITALS (12 sets, daily range): BP systolic 123–154; BP diastolic 88–101
[2018-10-24] MEDS: LORAZEPAM 2MG/ML CPJ IV PRN (00:24)
[2018-10-24] MEDS: CEFEPIME 1,000 MG in DEXTROSE 5% WATER 50 ML IV SCH ×2 (00:24→12:39)
[2018-10-24] MEDS: IPRATROPIUM BROMIDE (0.02%) 0.5MG/2.5ML NEB HHN SCH ×3 (04:27→21:20)
[2018-10-24] MEDS: METRONIDAZOLE 500 MG PREMIX 100 ML IV SCH ×3 (06:32→21:05)
[2018-10-24 06:59] LABS: BASOPHILS % 0.2 % (0.0-2.0); EOSINOPHILS % 1.6 % (0.0-5.0); HEMATOCRIT. 30.8 % (42.0-52.0); HEMOGLOBIN. 10.7 g/dL (14.0-18.0); LYMPHOCYTES % 14.7 % (20.0-50.0); MEAN CORPUSCULAR HEMOGLOBIN 30.8 pg (28.0-32.0); MEAN CORPUSCULAR VOLUME 88.3 fL (80.0-94.0); MEAN PLATELET VOLUME 8.1 fl (7.4-10.4); MONOCYTES % 9.3 % (2.0-8.0); NEUTROPHILS % 74.2 % (40.0-76.0); PLATELET 210 x1000/uL (130-400); RED BLOOD CELL COUNT 3.49 mill/uL (4.7-6.1); RED CELL DISTRIBUTION WIDTH 14.8 % (11.6-14.6)
[2018-10-24 07:40] LABS: CHLORIDE 108 mEq/L (98-107)
[2018-10-24 07:49] LABS: PHOSPHORUS 2.1 mg/dL (2.5-4.9)
[2018-10-24] MEDS: ACETYLCYSTEINE 100MG/ML 10% VIAL 4ML INH SCH (08:29)
[2018-10-24] MEDS ORDERED: KCL 20MEQ/100ML PREMIX 100 ML IV SCH (09:00)
[2018-10-24] MEDS: LOPERAMIDE 2 MG/10 ML UDC PO SCH ×2 (09:00→17:00)
[2018-10-24 09:47] LABS: BG BASE EXCESS 3.7 mmol/L (-2.0-2.0); BG DEOXYHEMOGLOBIN 1.4 % (0.0-5.0); BG FRACTION INSPIRED OXYGEN 40; BG HCO3 ACT 27.5 mmol/L (22.0-26.0); BG METHEMOGLOBIN 0.3 % (0.0-1.5); BG OXYGEN SATURATION 98.6 % (92.0-98.5); BG OXYHEMOGLOBIN 98.3 % (94.0-97.0); BG PCO2 38.4 mmHg (35.0-45.0); BG PH 7.473 (7.350-7.450); BG PO2 151.8 mmHg (75.0-100.0); BG PRESSURE SUPPORT 16; BG SAMPLE SITE LEFT RADIAL; BG TIDAL VOLUME(mL) 550 mL; BG TOTAL HEMOGLOBIN 11.1 g/dL (12.0-18.0); BG VENT MODE VENT - SIMV; BG VENT RATE 10 set
[2018-10-24] MEDS ORDERED: POTASSIUM PHOS,M-BASIC-D-BASIC 15 MMOL in DEXT 5% WATER 245 ML IV SCH (10:00)
[2018-10-24] MEDS: FOLIC ACID 1MG TABLET PO SCH (10:09)
[2018-10-24] MEDS: QUETIAPINE FUMARATE 50MG TABLET NG SCH ×2 (10:09→20:33)
[2018-10-24] MEDS: PANTOPRAZOLE SODIUM 40 MG/VIAL IV SCH (10:09)
[2018-10-24] MEDS: ACETAMINOPHEN 650MG/20.3ML UDC PO PRN (10:09)
[2018-10-24] MEDS: ENOXAPARIN 120MG/0.8ML SYR SUBCUT SCH ×2 (11:09→21:06)
[2018-10-24] MEDS: VANCOMYCIN 1 G PREMIX 200 ML IV SCH (13:44)
[2018-10-24] MEDS: ATORVASTATIN CALCIUM 20MG TABLET PO SCH (20:32)
[2018-10-24] MEDS: PHENYTOIN 100 MG/4 ML UDC NG SCH (20:32)
[2018-10-25] VITALS (11 sets, daily range): BP systolic 123–179; BP diastolic 83–157
[2018-10-25] MEDS: CEFEPIME 1,000 MG in DEXTROSE 5% WATER 50 ML IV SCH ×3 (00:32→23:23)
[2018-10-25] MEDS: IPRATROPIUM BROMIDE (0.02%) 0.5MG/2.5ML NEB HHN SCH ×5 (04:32→20:40)
[2018-10-25] MEDS: ACETYLCYSTEINE 100MG/ML 10% VIAL 4ML INH SCH ×3 (04:32→15:19)
[2018-10-25] MEDS: METRONIDAZOLE 500 MG PREMIX 100 ML IV SCH ×3 (05:31→21:47)
[2018-10-25 06:37] LABS: BASOPHILS % 0.5 % (0.0-2.0); EOSINOPHILS % 1.6 % (0.0-5.0); HEMATOCRIT. 30.8 % (42.0-52.0); HEMOGLOBIN. 10.7 g/dL (14.0-18.0); LYMPHOCYTES % 12.6 % (20.0-50.0); MEAN CORPUSCULAR HEMOGLOBIN 30.4 pg (28.0-32.0); MEAN CORPUSCULAR VOLUME 87.6 fL (80.0-94.0); MEAN PLATELET VOLUME 8.2 fl (7.4-10.4); MONOCYTES % 8.9 % (2.0-8.0); NEUTROPHILS % 76.4 % (40.0-76.0); PLATELET 205 x1000/uL (130-400); RED BLOOD CELL COUNT 3.51 mill/uL (4.7-6.1); RED CELL DISTRIBUTION WIDTH 14.9 % (11.6-14.6)
[2018-10-25] MEDS: VANCOMYCIN 1 G PREMIX 200 ML IV SCH ×2 (06:51→23:23)
[2018-10-25 07:12] LABS: CHLORIDE 107 mEq/L (98-107)
[2018-10-25 07:19] LABS: PHOSPHORUS 2.3 mg/dL (2.5-4.9)
[2018-10-25 07:23] LABS: VANCOMYCIN TROUGH 18.7 ug/mL (5.0-10.0)
[2018-10-25] MEDS: PANTOPRAZOLE SODIUM 40 MG/VIAL IV SCH (08:59)
[2018-10-25] MEDS: LOPERAMIDE 2 MG/10 ML UDC PO SCH ×2 (08:59→17:05)
[2018-10-25] MEDS: FOLIC ACID 1MG TABLET PO SCH (08:59)
[2018-10-25] MEDS: ENOXAPARIN 120MG/0.8ML SYR SUBCUT SCH ×2 (09:01→21:47)
[2018-10-25] MEDS: QUETIAPINE FUMARATE 50MG TABLET NG SCH ×2 (09:11→20:43)
[2018-10-25] MEDS ORDERED: POTASSIUM PHOS,M-BASIC-D-BASIC 15 MMOL in DEXT 5% WATER 245 ML IV SCH (10:00)
[2018-10-25] MEDS ORDERED: KCL 20MEQ/100ML PREMIX 100 ML IV SCH (14:00)
[2018-10-25] MEDS: LORAZEPAM 2MG/ML CPJ IV PRN ×2 (15:25→23:51)
[2018-10-25] MEDS: CLONIDINE 0.1MG TABLET PO PRN (17:02)
[2018-10-25] MEDS: HYDRALAZINE 20MG/ML VIAL IV PRN ×2 (17:35→23:51)
[2018-10-25] MEDS: ATORVASTATIN CALCIUM 20MG TABLET PO SCH (20:42)
[2018-10-25] MEDS: PHENYTOIN 100 MG/4 ML UDC NG SCH (20:42)
[2018-10-25] MEDS: ACETAMINOPHEN 650MG/20.3ML UDC PO PRN (23:22)
[2018-10-26] VITALS (13 sets, daily range): BP systolic 105–167; BP diastolic 52–102
[2018-10-26] MEDS: IPRATROPIUM BROMIDE (0.02%) 0.5MG/2.5ML NEB HHN SCH ×6 (00:41→20:09)
[2018-10-26] MEDS: ACETYLCYSTEINE 100MG/ML 10% VIAL 4ML INH SCH ×3 (00:41→16:39)
[2018-10-26] MEDS: METRONIDAZOLE 500 MG PREMIX 100 ML IV SCH ×3 (05:28→22:12)
[2018-10-26 06:50] LABS: BASOPHILS % 0.3 % (0.0-2.0); EOSINOPHILS % 0.2 % (0.0-5.0); HEMATOCRIT. 31.2 % (42.0-52.0); LYMPHOCYTES % 10.7 % (20.0-50.0); MEAN CORPUSCULAR HEMOGLOBIN 30.6 pg (28.0-32.0); MEAN PLATELET VOLUME 8.1 fl (7.4-10.4); NEUTROPHILS % 81.8 % (40.0-76.0); PLATELET 226 x1000/uL (130-400); RED BLOOD CELL COUNT 3.59 mill/uL (4.7-6.1); RED CELL DISTRIBUTION WIDTH 14.7 % (11.6-14.6)
[2018-10-26] MEDS: HYDRALAZINE 20MG/ML VIAL IV PRN (07:01)
[2018-10-26 07:33] LABS: CHLORIDE 105 mEq/L (98-107)
[2018-10-26 07:40] LABS: PHOSPHORUS 1.9 mg/dL (2.5-4.9)
[2018-10-26] MEDS: PANTOPRAZOLE SODIUM 40 MG/VIAL IV SCH (09:20)
[2018-10-26] MEDS: LOPERAMIDE 2 MG/10 ML UDC PO SCH ×2 (09:21→18:19)
[2018-10-26] MEDS: ENOXAPARIN 120MG/0.8ML SYR SUBCUT SCH ×2 (09:21→22:12)
[2018-10-26] MEDS: ACETAMINOPHEN 650MG/20.3ML UDC PO PRN (09:21)
[2018-10-26] MEDS: FOLIC ACID 1MG TABLET PO SCH (09:21)
[2018-10-26] MEDS: QUETIAPINE FUMARATE 50MG TABLET NG SCH ×2 (09:28→21:00)
[2018-10-26] MEDS: CEFEPIME 1,000 MG in DEXTROSE 5% WATER 50 ML IV SCH (11:13)
[2018-10-26] MEDS ORDERED: POTASSIUM PHOS,M-BASIC-D-BASIC 20 MMOL in DEXT 5% WATER 243.3333 ML IV NR (12:00)
[2018-10-26] MEDS ORDERED: MAGNESIUM 2 G PREMIX 50 ML IV NR (12:00)
[2018-10-26] MEDS: VANCOMYCIN 1 G PREMIX 200 ML IV SCH (18:19)
[2018-10-26] MEDS: PHENYTOIN 100 MG/4 ML UDC NG SCH (21:00)
[2018-10-26] MEDS: ATORVASTATIN CALCIUM 20MG TABLET PO SCH (21:00)
[2018-10-26] MEDS: METOPROLOL TARTRATE 50MG TABLET PO SCH (21:01)
[2018-10-27] VITALS (11 sets, daily range): BP systolic 98–149; BP diastolic 59–93
[2018-10-27] MEDS: ACETYLCYSTEINE 100MG/ML 10% VIAL 4ML INH SCH ×2 (00:29→09:43)
[2018-10-27] MEDS: IPRATROPIUM/ALBUTEROL 0.5-3(2.5)MG/3ML NEB HHN PRN ×2 (00:30→04:17)
[2018-10-27] MEDS: CEFEPIME 1,000 MG in DEXTROSE 5% WATER 50 ML IV SCH ×3 (01:00→21:12)
[2018-10-27] MEDS: HALOPERIDOL LACTATE 5MG/ML VIAL IM PRN (01:03)
[2018-10-27] MEDS: METRONIDAZOLE 500 MG PREMIX 100 ML IV SCH ×3 (05:33→21:02)
[2018-10-27 07:52] LABS: CHLORIDE 108 mEq/L (98-107)
[2018-10-27 08:12] LABS: PHOSPHORUS 2.8 mg/dL (2.5-4.9)
[2018-10-27] MEDS: METOPROLOL TARTRATE 50MG TABLET PO SCH ×2 (09:00→20:46)
[2018-10-27] MEDS: IPRATROPIUM BROMIDE (0.02%) 0.5MG/2.5ML NEB HHN SCH ×4 (09:43→19:45)
[2018-10-27] MEDS: ACETAMINOPHEN 650MG/20.3ML UDC PO PRN (09:47)
[2018-10-27] MEDS: QUETIAPINE FUMARATE 50MG TABLET NG SCH ×2 (09:48→20:46)
[2018-10-27] MEDS: PANTOPRAZOLE SODIUM 40 MG/VIAL IV SCH (09:48)
[2018-10-27] MEDS: FOLIC ACID 1MG TABLET PO SCH (09:48)
[2018-10-27] MEDS: LOPERAMIDE 2 MG/10 ML UDC PO SCH ×2 (09:48→17:00)
[2018-10-27] MEDS: ENOXAPARIN 120MG/0.8ML SYR SUBCUT SCH ×2 (09:48→21:08)
[2018-10-27] MEDS ORDERED: LORAZEPAM 2MG/ML CPJ IV PRN (10:15)
[2018-10-27] MEDS: VANCOMYCIN 1 G PREMIX 200 ML IV SCH (12:15)
[2018-10-27 13:01] LABS: BASOPHILS % 0.4 % (0.0-2.0); EOSINOPHILS % 1.5 % (0.0-5.0); HEMOGLOBIN. 10.1 g/dL (14.0-18.0); LYMPHOCYTES % 17.6 % (20.0-50.0); MEAN CORPUSCULAR HEMOGLOBIN 30.6 pg (28.0-32.0); MEAN CORPUSCULAR VOLUME 87.7 fL (80.0-94.0); MEAN PLATELET VOLUME 8.5 fl (7.4-10.4); MONOCYTES % 7.7 % (2.0-8.0); NEUTROPHILS % 72.8 % (40.0-76.0); PLATELET 199 x1000/uL (130-400); RED BLOOD CELL COUNT 3.31 mill/uL (4.7-6.1)
[2018-10-27] MEDS: ATORVASTATIN CALCIUM 20MG TABLET PO SCH (20:45)
[2018-10-27] MEDS: PHENYTOIN 100 MG/4 ML UDC NG SCH (20:45)
[2018-10-28] VITALS (14 sets, daily range): BP systolic 101–146; BP diastolic 46–92
[2018-10-28] MEDS: IPRATROPIUM BROMIDE (0.02%) 0.5MG/2.5ML NEB HHN SCH ×6 (00:04→20:12)
[2018-10-28] MEDS: METRONIDAZOLE 500 MG PREMIX 100 ML IV SCH ×3 (05:15→21:43)
[2018-10-28] MEDS: VANCOMYCIN 1 G PREMIX 200 ML IV SCH (05:58)
[2018-10-28 07:02] LABS: BASOPHILS % 0.3 % (0.0-2.0); EOSINOPHILS % 3.3 % (0.0-5.0); HEMATOCRIT. 26.4 % (42.0-52.0); HEMOGLOBIN. 9.2 g/dL (14.0-18.0); LYMPHOCYTES % 18.3 % (20.0-50.0); MEAN CORPUSCULAR HEMOGLOBIN 30.8 pg (28.0-32.0); MEAN CORPUSCULAR VOLUME 88.4 fL (80.0-94.0); MEAN PLATELET VOLUME 8.5 fl (7.4-10.4); MONOCYTES % 9.5 % (2.0-8.0); NEUTROPHILS % 68.6 % (40.0-76.0); PLATELET 205 x1000/uL (130-400); RED BLOOD CELL COUNT 2.99 mill/uL (4.7-6.1); RED CELL DISTRIBUTION WIDTH 14.8 % (11.6-14.6)
[2018-10-28 07:23] LABS: CHLORIDE 107 mEq/L (98-107)
[2018-10-28 07:35] LABS: PHOSPHORUS 2.7 mg/dL (2.5-4.9)
[2018-10-28] MEDS: PANTOPRAZOLE SODIUM 40 MG/VIAL IV SCH (08:33)
[2018-10-28] MEDS: LOPERAMIDE 2 MG/10 ML UDC PO SCH ×2 (08:33→17:00)
[2018-10-28] MEDS: FOLIC ACID 1MG TABLET PO SCH (08:34)
[2018-10-28] MEDS: QUETIAPINE FUMARATE 50MG TABLET NG SCH ×2 (08:34→21:42)
[2018-10-28] MEDS: METOPROLOL TARTRATE 50MG TABLET PO SCH ×2 (08:35→21:42)
[2018-10-28] MEDS: ENOXAPARIN 120MG/0.8ML SYR SUBCUT SCH ×2 (09:12→21:43)
[2018-10-28] MEDS: CEFEPIME 1,000 MG in DEXTROSE 5% WATER 50 ML IV SCH (13:00)
[2018-10-28] MEDS: PHENYTOIN 100 MG/4 ML UDC NG SCH (21:41)
[2018-10-28] MEDS: ATORVASTATIN CALCIUM 20MG TABLET PO SCH (21:42)
[2018-10-29] VITALS (12 sets, daily range): BP systolic 113–143; BP diastolic 57–86
[2018-10-29] MEDS: IPRATROPIUM BROMIDE (0.02%) 0.5MG/2.5ML NEB HHN SCH ×6 (00:11→21:04)
[2018-10-29] MEDS: ACETAMINOPHEN 650MG/20.3ML UDC PO PRN (00:43)
[2018-10-29] MEDS: METRONIDAZOLE 500 MG PREMIX 100 ML IV SCH ×3 (04:53→21:01)
[2018-10-29 06:01] LABS: BASOPHILS % 0.2 % (0.0-2.0); EOSINOPHILS % 2.6 % (0.0-5.0); HEMATOCRIT. 32.2 % (42.0-52.0); LYMPHOCYTES % 19.6 % (20.0-50.0); MEAN CORPUSCULAR HEMOGLOBIN 30.3 pg (28.0-32.0); MEAN CORPUSCULAR VOLUME 88.7 fL (80.0-94.0); MEAN PLATELET VOLUME 8.6 fl (7.4-10.4); MONOCYTES % 9.6 % (2.0-8.0); PLATELET 266 x1000/uL (130-400); RED BLOOD CELL COUNT 3.63 mill/uL (4.7-6.1)
[2018-10-29 06:23] LABS: CHLORIDE 106 mEq/L (98-107)
[2018-10-29 06:40] LABS: PHOSPHORUS 2.5 mg/dL (2.5-4.9)
[2018-10-29] MEDS: LOPERAMIDE 2 MG/10 ML UDC PO SCH ×2 (09:05→18:04)
[2018-10-29] MEDS: ENOXAPARIN 120MG/0.8ML SYR SUBCUT SCH ×2 (09:05→20:52)
[2018-10-29] MEDS: PANTOPRAZOLE SODIUM 40 MG/VIAL IV SCH (09:06)
[2018-10-29] MEDS: FOLIC ACID 1MG TABLET PO SCH (09:06)
[2018-10-29] MEDS: QUETIAPINE FUMARATE 50MG TABLET NG SCH ×2 (09:06→20:51)
[2018-10-29] MEDS: METOPROLOL TARTRATE 50MG TABLET PO SCH ×2 (09:13→20:51)
[2018-10-29 11:10] LABS: BG BASE EXCESS 7.9 mmol/L (-2.0-2.0); BG CARBOXYHEMOGLOBIN 0.1 % (0.5-1.5); BG DEOXYHEMOGLOBIN 1.3 % (0.0-5.0); BG FRACTION INSPIRED OXYGEN 40; BG HCO3 ACT 32.3 mmol/L (22.0-26.0); BG METHEMOGLOBIN 0.3 % (0.0-1.5); BG OXYGEN SATURATION 98.7 % (92.0-98.5); BG OXYHEMOGLOBIN 98.3 % (94.0-97.0); BG PH 7.483 (7.350-7.450); BG PO2 154.5 mmHg (75.0-100.0); BG PRESSURE SUPPORT 12; BG SAMPLE SITE RIGHT RADIAL; BG TIDAL VOLUME(mL) 500 mL; BG TOTAL HEMOGLOBIN 11.2 g/dL (12.0-18.0); BG VENT MODE VENT - SIMV; BG VENT RATE 6 set
[2018-10-29] MEDS: PHENYTOIN 100 MG/4 ML UDC NG SCH (20:50)
[2018-10-29] MEDS: ATORVASTATIN CALCIUM 20MG TABLET PO SCH (20:51)
[2018-10-30] VITALS (12 sets, daily range): BP systolic 120–171; BP diastolic 74–103
[2018-10-30] MEDS: IPRATROPIUM BROMIDE (0.02%) 0.5MG/2.5ML NEB HHN SCH ×7 (02:13→23:57)
[2018-10-30] MEDS: LOPERAMIDE 2 MG/10 ML UDC PO SCH ×2 (09:05→17:08)
[2018-10-30] MEDS: FOLIC ACID 1MG TABLET PO SCH (09:05)
[2018-10-30] MEDS: PANTOPRAZOLE SODIUM 40 MG/VIAL IV SCH (09:05)
[2018-10-30] MEDS: QUETIAPINE FUMARATE 50MG TABLET NG SCH ×2 (09:05→22:27)
[2018-10-30] MEDS: METOPROLOL TARTRATE 50MG TABLET PO SCH ×2 (09:09→22:27)
[2018-10-30] MEDS: ENOXAPARIN 120MG/0.8ML SYR SUBCUT SCH ×2 (09:09→22:27)
[2018-10-30] MEDS: ACETYLCYSTEINE 100MG/ML 10% VIAL 4ML INH SCH ×2 (15:48→23:57)
[2018-10-30] MEDS: PHENYTOIN 100 MG/4 ML UDC NG SCH (22:26)
[2018-10-30] MEDS: ATORVASTATIN CALCIUM 20MG TABLET PO SCH (22:27)
[2018-10-31] VITALS (71 sets, daily range): BP systolic 74–213; BP diastolic 24–133
[2018-10-31] MEDS: IPRATROPIUM/ALBUTEROL 0.5-3(2.5)MG/3ML NEB HHN PRN (03:15)
[2018-10-31 03:54] LABS: HEMATOCRIT. 32.1 % (42.0-52.0); HEMOGLOBIN. 11.2 g/dL (14.0-18.0); MEAN CORPUSCULAR HEMOGLOBIN 30.6 pg (28.0-32.0); MEAN PLATELET VOLUME 8.2 fl (7.4-10.4); PLATELET 356 x1000/uL (130-400); RED BLOOD CELL COUNT 3.65 mill/uL (4.7-6.1)
[2018-10-31 04:00] LABS: CHLORIDE 106 mEq/L (98-107)
[2018-10-31 04:03] LABS: PARTIAL THROMBOPLASTIN TIME 34.5 sec (23.4-31.0); PROTHROMBIN TIME 10.7 sec (9.6-11.0)
[2018-10-31 04:18] LABS: PLATELET ESTIMATE NORMAL
[2018-10-31] MEDS: HYDRALAZINE 20MG/ML VIAL IV PRN (04:54)
[2018-10-31] MEDS ORDERED: RACEPINEPHRINE 2.25% 0.5ML NEB VIAL HHN NR (07:30)
[2018-10-31] MEDS ORDERED: PHENYLEPHRINE HCL 1% 15 ML NASAL SPRAY BOTHNSTRLS NR (07:30)
[2018-10-31] MEDS ORDERED: RACEPINEPHRINE 2.25% 0.5ML NEB VIAL ONE (07:35)
[2018-10-31] MEDS: IPRATROPIUM BROMIDE (0.02%) 0.5MG/2.5ML NEB HHN SCH ×4 (07:42→20:05)
[2018-10-31 07:51] LABS: BG BASE EXCESS 7.1 mmol/L (-2.0-2.0); BG CARBOXYHEMOGLOBIN 0.3 % (0.5-1.5); BG DEOXYHEMOGLOBIN 0.8 % (0.0-5.0); BG FRACTION INSPIRED OXYGEN 100; BG HCO3 ACT 35.5 mmol/L (22.0-26.0); BG METHEMOGLOBIN 0.5 % (0.0-1.5); BG OXYGEN SATURATION 99.2 % (92.0-98.5); BG OXYHEMOGLOBIN 98.4 % (94.0-97.0); BG PCO2 71.1 mmHg (35.0-45.0); BG PH 7.316 (7.350-7.450); BG PO2 243.8 mmHg (75.0-100.0); BG SAMPLE SITE RIGHT RADIAL; BG TIDAL VOLUME(mL) 500 mL; BG TOTAL HEMOGLOBIN 12.4 g/dL (12.0-18.0); BG VENT MODE VENT - A/C; BG VENT RATE 12 set
[2018-10-31] MEDS: PROPOFOL 10MG/ML 100ML 100 ML IV PRN ×3 (08:15→22:33)
[2018-10-31] MEDS: METOPROLOL TARTRATE 50MG TABLET PO SCH ×2 (09:00→20:38)
[2018-10-31] MEDS: FENTANYL CITRATE/PF 500 MCG in SODIUM CHLORIDE 0.9% 40 ML IV PRN (09:54)
[2018-10-31] MEDS: LOPERAMIDE 2 MG/10 ML UDC PO SCH ×2 (10:02→17:08)
[2018-10-31] MEDS: QUETIAPINE FUMARATE 50MG TABLET NG SCH ×2 (10:02→20:38)
[2018-10-31] MEDS: PANTOPRAZOLE SODIUM 40 MG/VIAL IV SCH (10:02)
[2018-10-31] MEDS: FOLIC ACID 1MG TABLET PO SCH (10:08)
[2018-10-31] MEDS: METOCLOPRAMIDE HCL 10MG/2ML VIAL IV SCH ×3 (12:30→23:29)
[2018-10-31] MEDS: ACETYLCYSTEINE 100MG/ML 10% VIAL 4ML INH SCH ×2 (12:51→16:38)
[2018-10-31] MEDS: PHENYLEPHRINE 40 MG in DEXT 5% WATER 246 ML IV PRN (16:23)
[2018-10-31] MEDS: ATORVASTATIN CALCIUM 20MG TABLET PO SCH (20:38)
[2018-10-31] MEDS: PHENYTOIN 100 MG/4 ML UDC NG SCH (20:38)
[2018-11-01] VITALS (50 sets, daily range): BP systolic 96–133; BP diastolic 51–88
[2018-11-01] MEDS: ACETYLCYSTEINE 100MG/ML 10% VIAL 4ML INH SCH ×2 (00:13→07:29)
[2018-11-01] MEDS: IPRATROPIUM BROMIDE (0.02%) 0.5MG/2.5ML NEB HHN SCH ×6 (00:13→20:24)
[2018-11-01] MEDS: PROPOFOL 10MG/ML 100ML 100 ML IV PRN (03:28)
[2018-11-01] MEDS: FENTANYL CITRATE/PF 500 MCG in SODIUM CHLORIDE 0.9% 40 ML IV PRN (04:48)
[2018-11-01 05:06] LABS: BASOPHILS % 0.2 % (0.0-2.0); EOSINOPHILS % 1.1 % (0.0-5.0); HEMATOCRIT. 30.2 % (42.0-52.0); HEMOGLOBIN. 10.2 g/dL (14.0-18.0); MEAN CORPUSCULAR VOLUME 88.3 fL (80.0-94.0); MEAN PLATELET VOLUME 8.4 fl (7.4-10.4); MONOCYTES % 9.6 % (2.0-8.0); NEUTROPHILS % 63.1 % (40.0-76.0); PLATELET 359 x1000/uL (130-400); RED BLOOD CELL COUNT 3.42 mill/uL (4.7-6.1)
[2018-11-01] MEDS: METOCLOPRAMIDE HCL 10MG/2ML VIAL IV SCH ×4 (05:22→23:22)
[2018-11-01] MEDS: PHENYLEPHRINE 40 MG in DEXT 5% WATER 246 ML IV PRN (05:23)
[2018-11-01] MEDS: FOLIC ACID 1MG TABLET PO SCH (08:29)
[2018-11-01] MEDS: PANTOPRAZOLE SODIUM 40 MG/VIAL IV SCH (08:29)
[2018-11-01] MEDS: QUETIAPINE FUMARATE 50MG TABLET NG SCH (08:29)
[2018-11-01] MEDS: LOPERAMIDE 2 MG/10 ML UDC PO SCH ×2 (08:29→17:13)
[2018-11-01] MEDS: METOPROLOL TARTRATE 50MG TABLET PO SCH ×3 (08:32→20:49)
[2018-11-01] MEDS ORDERED: PROPOFOL 10MG/ML 100ML 100 ML IV PRN (09:00)
[2018-11-01] MEDS ORDERED: QUETIAPINE FUMARATE 50MG TABLET GT SCH (09:00)
[2018-11-01] MEDS ORDERED: SODIUM CHLORIDE 0.9% 500 ML IV ONE (09:15)
[2018-11-01] MEDS: ENOXAPARIN 100MG/ML SYR SUBCUT SCH ×2 (09:44→20:19)
[2018-11-01] MEDS ORDERED: LORAZEPAM 2MG/ML CPJ IV PRN (10:15)
[2018-11-01] MEDS ORDERED: IPRATROPIUM/ALBUTEROL 0.5-3(2.5)MG/3ML NEB HHN PRN (11:15)
[2018-11-01] MEDS ORDERED: ONDANSETRON HCL 4MG/2ML INJ IV PRN (13:00)
[2018-11-01] MEDS: PHENYTOIN 100 MG/4 ML UDC NG SCH (20:18)
[2018-11-01] MEDS: ATORVASTATIN CALCIUM 20MG TABLET PO SCH (20:18)
[2018-11-01] MEDS: QUETIAPINE FUMARATE 50MG TABLET GT SCH (20:18)
[2018-11-02] VITALS (20 sets, daily range): BP systolic 97–157; BP diastolic 35–101
[2018-11-02] MEDS: IPRATROPIUM BROMIDE (0.02%) 0.5MG/2.5ML NEB HHN SCH ×6 (00:45→20:09)
[2018-11-02] MEDS: ACETYLCYSTEINE 100MG/ML 10% VIAL 4ML INH SCH ×3 (00:45→16:28)
[2018-11-02] MEDS: METOCLOPRAMIDE HCL 10MG/2ML VIAL IV SCH ×4 (05:07→23:46)
[2018-11-02 05:39] LABS: BASOPHILS % 0.5 % (0.0-2.0); EOSINOPHILS % 1.7 % (0.0-5.0); HEMATOCRIT. 26.9 % (42.0-52.0); HEMOGLOBIN. 9.2 g/dL (14.0-18.0); LYMPHOCYTES % 25.7 % (20.0-50.0); MEAN CORPUSCULAR HEMOGLOBIN 30.6 pg (28.0-32.0); MEAN CORPUSCULAR VOLUME 89.2 fL (80.0-94.0); MEAN PLATELET VOLUME 8.7 fl (7.4-10.4); MONOCYTES % 9.7 % (2.0-8.0); NEUTROPHILS % 62.4 % (40.0-76.0); PLATELET 316 x1000/uL (130-400); RED BLOOD CELL COUNT 3.01 mill/uL (4.7-6.1); RED CELL DISTRIBUTION WIDTH 15.2 % (11.6-14.6)
[2018-11-02 05:44] LABS: CHLORIDE 107 mEq/L (98-107)
[2018-11-02] MEDS: ENOXAPARIN 100MG/ML SYR SUBCUT SCH ×2 (09:10→20:52)
[2018-11-02] MEDS: LOPERAMIDE 2 MG/10 ML UDC PO SCH ×2 (09:10→18:42)
[2018-11-02] MEDS: FOLIC ACID 1MG TABLET PO SCH (09:11)
[2018-11-02] MEDS: METOPROLOL TARTRATE 50MG TABLET PO SCH ×2 (09:11→20:53)
[2018-11-02] MEDS: QUETIAPINE FUMARATE 50MG TABLET GT SCH ×2 (09:11→20:52)
[2018-11-02 10:14] LABS: BG BASE EXCESS 9.2 mmol/L (-2.0-2.0); BG CARBOXYHEMOGLOBIN 0.3 % (0.5-1.5); BG DEOXYHEMOGLOBIN 1.6 % (0.0-5.0); BG FRACTION INSPIRED OXYGEN 50; BG HCO3 ACT 33.6 mmol/L (22.0-26.0); BG METHEMOGLOBIN 0.2 % (0.0-1.5); BG OXYGEN SATURATION 98.4 % (92.0-98.5); BG OXYHEMOGLOBIN 97.9 % (94.0-97.0); BG PCO2 45.5 mmHg (35.0-45.0); BG PH 7.486 (7.350-7.450); BG PO2 155.2 mmHg (75.0-100.0); BG SAMPLE SITE RIGHT RADIAL; BG TIDAL VOLUME(mL) 500 mL; BG TOTAL HEMOGLOBIN 10.5 g/dL (12.0-18.0); BG VENT MODE VENT - A/C; BG VENT RATE 16 set
[2018-11-02] MEDS: PHENYTOIN 100 MG/4 ML UDC NG SCH (20:52)
[2018-11-02] MEDS: ATORVASTATIN CALCIUM 20MG TABLET PO SCH (20:53)
[2018-11-03] VITALS (12 sets, daily range): BP systolic 90–125; BP diastolic 49–83
[2018-11-03] MEDS: IPRATROPIUM BROMIDE (0.02%) 0.5MG/2.5ML NEB HHN SCH ×6 (00:10→20:10)
[2018-11-03] MEDS: ACETYLCYSTEINE 100MG/ML 10% VIAL 4ML INH SCH ×3 (00:10→15:00)
[2018-11-03] MEDS: METOCLOPRAMIDE HCL 10MG/2ML VIAL IV SCH ×4 (05:51→23:05)
[2018-11-03 07:12] LABS: BASOPHILS % 0.6 % (0.0-2.0); CHLORIDE 107 mEq/L (98-107); EOSINOPHILS % 1.5 % (0.0-5.0); HEMATOCRIT. 25.6 % (42.0-52.0); LYMPHOCYTES % 25.3 % (20.0-50.0); MEAN CORPUSCULAR HEMOGLOBIN 31.2 pg (28.0-32.0); MEAN CORPUSCULAR VOLUME 88.8 fL (80.0-94.0); MEAN PLATELET VOLUME 8.4 fl (7.4-10.4); MONOCYTES % 9.1 % (2.0-8.0); NEUTROPHILS % 63.5 % (40.0-76.0); PLATELET 342 x1000/uL (130-400); RED BLOOD CELL COUNT 2.88 mill/uL (4.7-6.1); RED CELL DISTRIBUTION WIDTH 15.7 % (11.6-14.6)
[2018-11-03] MEDS: FOLIC ACID 1MG TABLET PO SCH (08:17)
[2018-11-03] MEDS: ENOXAPARIN 100MG/ML SYR SUBCUT SCH ×2 (08:17→21:22)
[2018-11-03] MEDS: METOPROLOL TARTRATE 50MG TABLET PO SCH ×2 (08:18→21:21)
[2018-11-03] MEDS: QUETIAPINE FUMARATE 50MG TABLET GT SCH ×2 (08:18→21:21)
[2018-11-03] MEDS: LOPERAMIDE 2 MG/10 ML UDC PO SCH ×2 (08:22→17:21)
[2018-11-03] MEDS: ATORVASTATIN CALCIUM 20MG TABLET PO SCH (21:21)
[2018-11-03] MEDS: PHENYTOIN 100 MG/4 ML UDC NG SCH (21:22)
[2018-11-04] VITALS (12 sets, daily range): BP systolic 105–139; BP diastolic 33–98
[2018-11-04] MEDS: IPRATROPIUM BROMIDE (0.02%) 0.5MG/2.5ML NEB HHN SCH ×6 (00:05→20:12)
[2018-11-04] MEDS: ACETYLCYSTEINE 100MG/ML 10% VIAL 4ML INH SCH ×3 (00:05→16:47)
[2018-11-04] MEDS: METOCLOPRAMIDE HCL 10MG/2ML VIAL IV SCH ×3 (05:41→18:33)
[2018-11-04] MEDS: LOPERAMIDE 2 MG/10 ML UDC PO SCH ×2 (09:33→18:33)
[2018-11-04] MEDS: QUETIAPINE FUMARATE 50MG TABLET GT SCH ×2 (09:33→20:58)
[2018-11-04] MEDS: METOPROLOL TARTRATE 50MG TABLET PO SCH ×2 (09:33→20:58)
[2018-11-04] MEDS: ENOXAPARIN 100MG/ML SYR SUBCUT SCH ×2 (09:33→21:01)
[2018-11-04] MEDS: PHENYTOIN 100 MG/4 ML UDC NG SCH (20:58)
[2018-11-05] VITALS (10 sets, daily range): BP systolic 105–137; BP diastolic 64–90
[2018-11-05] MEDS: METOCLOPRAMIDE HCL 10MG/2ML VIAL IV SCH ×4 (00:03→17:07)
[2018-11-05] MEDS: IPRATROPIUM BROMIDE (0.02%) 0.5MG/2.5ML NEB HHN SCH ×4 (00:24→12:00)
[2018-11-05] MEDS: LOPERAMIDE 2 MG/10 ML UDC PO SCH ×2 (08:03→17:07)
[2018-11-05] MEDS: QUETIAPINE FUMARATE 50MG TABLET GT SCH (08:03)
[2018-11-05] MEDS: METOPROLOL TARTRATE 50MG TABLET PO SCH (08:04)
[2018-11-05] MEDS: ENOXAPARIN 100MG/ML SYR SUBCUT SCH (08:04)
[2018-11-05] MEDS ORDERED: IPRATROPIUM BROMIDE (0.02%) 0.5MG/2.5ML NEB HHN SCH (13:00)
== END 2018-11-05 19:05 | DRG 4 ==
LOC: ER 23:24 → 6WST 10-05 01:23 → ENRESERV 10-05 02:32 → MICUSO 10-06 12:40 → 5EST 10-22 22:35 → MICUSO 10-31 07:55 → 5EST 11-02 15:12
PROVIDERS: ADMIT Internal Medicine; ATTEND Internal Medicine
PROC: 0BH17EZ Insertion of Endotracheal Airway into Trachea, Via Natural or Artificial Opening (ICD-10-PCS; 2018-10-06)
PROC: 06HY33Z Insertion of Infusion Device into Lower Vein, Percutaneous Approach (ICD-10-PCS; 2018-10-06)
PROC: 5A1945Z Respiratory Ventilation, 24-96 Consecutive Hours (ICD-10-PCS; 2018-10-06)
PROC: 5A1955Z Respiratory Ventilation, Greater than 96 Consecutive Hours (ICD-10-PCS; principal; 2018-10-09)
PROC: 0BH17EZ Insertion of Endotracheal Airway into Trachea, Via Natural or Artificial Opening (ICD-10-PCS; 2018-10-09)
PROC: 02HV33Z Insertion of Infusion Device into Superior Vena Cava, Percutaneous Approach (ICD-10-PCS; 2018-10-12)
PROC: B548ZZA Ultrasonography of Superior Vena Cava, Guidance (ICD-10-PCS; 2018-10-12)
PROC: 0DH63UZ Insertion of Feeding Device into Stomach, Percutaneous Approach (ICD-10-PCS; 2018-10-18)
PROC: 0B110F4 Bypass Trachea to Cutaneous with Tracheostomy Device, Open Approach (ICD-10-PCS; 2018-10-21)
PROC: 0GBJ0ZZ Excision of Thyroid Gland Isthmus, Open Approach (ICD-10-PCS; 2018-10-21)
DX: A41.9 Sepsis, unspecified organism (principal); I26.99 Other pulmonary embolism without acute cor pulmonale; N17.0 Acute kidney failure with tubular necrosis; J69.0 Pneumonitis due to inhalation of food and vomit; I82.411 Acute embolism and thrombosis of right femoral vein; E44.1 Mild protein-calorie malnutrition; D68.59 Other primary thrombophilia; L89.150 Pressure ulcer of sacral region, unstageable; I77.6 Arteritis, unspecified; D64.9 Anemia, unspecified; E87.6 Hypokalemia; L89.320 Pressure ulcer of left buttock, unstageable; J96.01 Acute respiratory failure with hypoxia; I50.22 Chronic systolic (congestive) heart failure; I11.0 Hypertensive heart disease with heart failure; I69.351 Hemiplegia and hemiparesis following cerebral infarction affecting right dominant side; G40.909 Epilepsy, unspecified, not intractable, without status epilepticus; E66.01 Morbid (severe) obesity due to excess calories; E78.1 Pure hyperglyceridemia; E78.5 Hyperlipidemia, unspecified; F41.9 Anxiety disorder, unspecified; I42.9 Cardiomyopathy, unspecified; K29.70 Gastritis, unspecified, without bleeding; K80.20 Calculus of gallbladder without cholecystitis without obstruction; R13.10 Dysphagia, unspecified; N28.1 Cyst of kidney, acquired; R65.20 Severe sepsis without septic shock; Z74.01 Bed confinement status; Z78.1 Physical restraint status; Z82.49 Family history of ischemic heart disease and other diseases of the circulatory system; Z99.11 Dependence on respirator [ventilator] status; Z68.30 Body mass index [BMI] 30.0-30.9, adult
CPT/HCPCS: 36415; 36569; 36600; 71045; 71275; 74177; 76770; 76937; 80048; 80202; 80320; 81403; 81407; 81479; 82375; 82550; 82805; 82962; 83036; 83520; 83605; 83735; 83880; 84100; 84134; 84145; 84478; 84484; 85300; 85303; 85306; 85613; 85732; 86038; 86147; 86256; 87015; 87045; 87070; 87427; 87449; 89055; 92610; 93005; 93306; 93970; 94003; 94640; 94660; 94667; 96374; 96375; 97110; 97162; 97165; 97530; 99285; A6261; C1725; C9113; J0360; J0690; J0692; J1100; J1630; J1650; J2060; J2250; J2270; J2370; J2405; J2543; J2704; J2765; J2930; J3010; J3370; J3475; J3480; J3490; J7030; J7040; J7050; J7060; J7608; J7620; J8540; Q9967; A4315; G0480